=== PATIENT | female | born 1940 | race Caucasian/White ===

== ENCOUNTER 2023-04-17 08:36 | Emergency (ER) | payer OTHER, SELFPAY ==
[2023-04-17 08:43] VITALS: BP 156/88
[2023-04-17 08:52] VITALS: BP 154/80
[2023-04-17 09:00] VITALS: BP 118/102
--- NOTE | 2023-04-17 09:10 | ED.GENMED ---
History of Present Illness
General
Chief Complaint: Abdominal Pain
Source: patient
Exam Limitations: none
Time Seen by Provider: 04/17/23 08:56
Travel History
Have you had any contact with someone who has COVID-19?: No
Do you have any symptoms of coronavirus? Fever > 100 degrees, chills, cough, shortness of breath, sore throat, loss of taste or smell, muscle aches, or headache?: No
History of Present Illness
History of Present Illness:
See MDM
Past History
Past History
ED Past Medical History: HTN, Hypercholesterolemia, Hypothyroidism and Other (Diverticular disease, anxiety, chronic back pain, or near syncope syndrome with a negative workup, spinal stenosis, fractured lumbar spine); Negative Cancer or NIDDM
ED Past Surgical History: Other (Bilateral bunionectomy)
Social History
Tobacco: Former smoker
Alcohol: None
Drug: None
Personal:
Living: with family
Employment: Retired
Family History
Family History: Early CAD and Other
Phy Exam
Physical Exam
Physical Exam:
See MDM
Course
Orders/Labs/Results
Orders:
Orders
04/17/23 09:10
0.9% Sodium Chloride 1000 ml [Nss] 1,000 ml IV BOLUS
Ketorolac [Toradol] 15 mg IV NOW STA
04/17/23 09:12
CT Abd/pelvis W Iv Cont Urgent
Comment:
Reason For Exam: LLQ pain
04/17/23 09:18
Complete Blood Count/With Diff Urgent
Comprehensive Metabolic Panel Urgent
Urinalysis Reflex To Culture Urgent
Date Specimen was Collected: 04/17/23
Time Specimen was Collected: 09:13
04/17/23 13:53
Tramadol HCl [Ultram] 25 mg PO NOW STA
Abnormal Lab Results
02/01/24
09:18
Abs Immat Gran (auto) 0.1 H 10^3/uL
(0-0.05)
Immature Gran % 1.3 H %
(0-0.5)
Sodium 129 L mmol/L
(135-145)
Chloride 97 L mmol/L
(98-107)
Glucose 106 H mg/dl
(70-99)
04/17/23 09:18
04/17/23 09:18
Vital Signs
Initial and Last Documented VS:
Initial Vital Signs
Temp Pulse Resp BP Pulse Ox
97.2 F 83 16 156/88 100
04/17/23 08:43 04/17/23 08:43 04/17/23 08:43 04/17/23 08:43 04/17/23 08:43
Last Documented Vital Signs
Temp Pulse Resp BP Pulse Ox
97.2 F 83 16 156/72 95
04/17/23 08:43 04/17/23 08:43 04/17/23 08:43 04/17/23 10:00 04/17/23 10:45
MDM/Problems Addressed
Differential Diagnosis Includes:
HPI and MDM Narrative:
82-year-old female presenting with left lower quadrant pain. She has a history of diverticulitis. She recently finished Macrobid for UTI. Her doctor started her on Levaquin and Flagyl yesterday for a presumed diverticulitis. The persistent pain,
she came to emergency department. She denies fevers or diarrhea
Given her age and symptoms, will obtain CT
Physical exam
General: Well appearing and non-toxic
HEENT: protecting airway
Neck: appears supple
CV: No evidence of cyanosis
Resp: No accessory muscle use
Abd: Non-distended. Mild left lower quadrant tenderness. No rebound
Extremities: No deformities
Neuro: alert
Psych: Normal affect
Skin: Intact
Problems Addressed including Acute and Chronic Conditions affecting care:
1. Abdominal pain
Acuity: acute
Prognosis: stable
Details: Will obtain CT given her history of diverticulitis
Updates
CT negative for acute pathology. Given the pain, discussed likely early diverticulitis. She already started Levaquin yesterday but has not started the Flagyl. Discussed admission versus discharge and patient feels comfortable going home.
Discussed taking her antibiotics and discussed return precautions
Differential Diagnosis (but not limited to): Pyelonephritis, UTI, diverticulitis
Testing considered: Lactic acid
Drug therapy (if applicable): OTC meds, please see d/c instruction regarding Rx drugs
Amount and/or Complexity of Data Reviewed
Clinical info obtained from: Patient
External data reviewed: N/A
Labs I independently reviewed (but not limited to): white blood Cell count normal
Radiology: The CT scan was personally and independently reviewed. In addition, official CT report reviewed.
Pulse Ox: not hypoxic
EKG independently reviewed: N/A
Data Analytics Developer: N/A
Critical Care: N/A
Risk of Complication:
Social Determinants of health: Good social support
Discussed with other providers: N/A
Escalation of Care includes Admit/Obs: After being observed in the Emergency Department, pt stable for discharge.
Occasional wrong word or 'sound a like' substitutions may have occurred due to the inherent limitations of voice recognition software. Read the chart carefully and recognize, using context, where substitutions have occurred.
*Critical Care Note
Total Time (30-74mins, 75-104mins- exclusive of procedures): Not Applicable
ED Attending Note
-
Portions of this chart may have been created with voice recognition software.� Occasional wrong word or��sound alike� substitutions may have occurred due to the inherent limitations of voice recognition software.
Discharge Plan
Departure
Patient Disposition: Home (Routine Discharge)
Date of Disposition: 04/17/23
Time of Disposition: 13:59
Patient with high blood pressure during this ER visit?: Yes
Discharge Problem:
Diverticulitis large intestine
Instructions: Diverticulitis (DC)
Prescriptions:
New
tramadol 25 mg tablet
25 mg PO Q6H PRN (Reason: Pain) Qty: 14 0RF
No Action
aspirin 81 MG tablet,delayed release (DR/EC)
81 mg PO DAILY
lisinopril 20 MG tablet
20 mg PO HS
levothyroxine 75 MCG tablet
75 mcg PO DAILY AT 0700
lorazepam 0.5 MG tablet
0.5 mg PO DAILYPRN PRN (Reason: anxiety)
ascorbic acid (vitamin C) [Vitamin C] 500 MG tablet
1,000 mg PO DAILY@1200
zolpidem 5 MG tablet
5 mg PO HSPRN PRN (Reason: sleep)
multivitamin with folic acid [Tab-A-Mary] 1 TABLET tablet
1 tab PO DAILY@1200
Ostrophin Pmg
1 tab PO BID
lidocaine 1 PATCH adhesive patch,medicated
2 patch topical DAILY
rosuvastatin 5 MG tablet
5 mg PO .Q48H@2200
vit C,N-Cm-gkmit-lutein-zeaxan [PreserVision AREDS-2] 1 EACH capsule
1 ea PO BID
L.acidoph, paracasei,B. lactis 1 EACH capsule
1 ea PO DAILY@1200
calcium carb-mag ox-zinc sulf 1 EACH tablet
1 ea PO DAILY@1200
Vitamin B Complex With Biotin
1 tab PO DAILY@1200
docusate sodium 100 MG capsule
100 mg PO BID Qty: 60 0RF
acetaminophen 325 MG tablet
650 mg PO Q4HPRN PRN (Reason: mild pain/HILLS/temp> 100.4F) 0RF
prednisone 10 MG tablet
10 mg PO DAILY Qty: 30 0RF
polyethylene glycol 3350 17 GRAMS powder in packet
17 grams PO DAILY Qty: 30 0RF
codeine-guaifenesin [Guaiatussin AC] 10 ML liquid
5 ml PO Q6HPRN PRN (Reason: cough) Qty: 10 0RF
Referrals:
Elizabeth Acosta MD [Family Provider] -
Activity Restrictions/Additional Instructions:
Please continue your antibiotics as prescribed.
Please return for any worsening symptoms.
You may return at any time if you have further concerns.
Please follow up with your doctor at the first available appointment, preferably this week.
Thank you for choosing [facility].
Interventions
Interventions:
*Risk Screen - Suicide Last Done: 04/17/23 09:15
*General Assessment Last Done: 04/17/23 08:43
*Neglect/Abuse Screening Last Done: 04/17/23 09:15
ED- Fall Risk Assessment Last Done: 04/17/23 09:15
*ED COVID-19 Vaccine History Last Done: 04/17/23 08:43
KW-Lsvxwb-Tftbbxvfly Assessment Last Done: 04/17/23 09:15
[2023-04-17 09:15] VITALS: BMI 30.8
[2023-04-17] MEDS: TORADOL 15 MG IV (09:24)
[2023-04-17] MEDS: NSS 1000 IV (09:24)
[2023-04-17 09:28] VITALS: BP 134/77
[2023-04-17 09:45] LABS: Urine Albumin Negative (Neg - Trace); Urine Bilirubin Negative (Negative); Urine Character Clear (Clear); Urine Color Yellow; Urine Glucose Negative (Negative); Urine Ketone Negative (Negative); Urine Leukocyte Negative (Negative); Urine Nitrite Negative (Negative); Urine Occult Blood Negative (Negative); Urine Urobilinogen Negative (Neg - 1+)
[2023-04-17 09:50] LABS: % Basophils 0.7 % (0-2); % Eosinophils 3.3 % (0-6); % Immature Granulocytes 1.3 % (0-0.5); % Monocytes 6.3 % (1.7-9.3); % Neutrophils 60.4 % (42.2-75.2); Absolute Eosinophils 0.2 10^3/uL (0-0.7); Absolute Immature Granulocytes 0.1 10^3/uL (0-0.05); Absolute Lymphocytes 1.7 10^3/uL (1.2-3.4); Absolute Monocytes 0.4 10^3/uL (0.1-0.6); Absolute Neutrophils 3.6 10^3/uL (1.4-6.5); Hematocrit 38.7 % (37.0-47.0); Mean Corp Hgb Conc. 33.6 g/dL (33.0-37.0); Mean Corpuscular Volume 92.1 fL (81.0-99.0); Mean Platelet Volume 9.3 fL (7.4-10.4); Nucleated Red Blood Cells % 0 %; Platelet Count 234 10^3/uL (130-400); Red Cell Dist. Width 14.3 % (11.5-14.5)
[2023-04-17 10:00] VITALS: BP 156/72
[2023-04-17 10:01] LABS: ALT (SGPT) 25 U/L (0-35); AST (SGOT) 32 U/L (14-36); Albumin 4.4 g/dl (3.5-5.0); Alkaline Phosphatase 72 U/L (38-126); Blood Urea Nitrogen 17 mg/dl (7-17); Calcium 9.9 mg/dl (8.4-10.2); Carbon Dioxide 26 mmol/L (22-30); Chloride 97 mmol/L (98-107); Estimated Creatinine Clearance 57 ml/min; Glucose 106 mg/dl (70-99); Potassium 4.3 mmol/L (3.5-5.1); Sodium 129 mmol/L (135-145); Total Bilirubin 0.7 mg/dl (0.2-1.3); Total Protein 7.4 g/dl (6.3-8.2); eGFR > 60.00
[2023-04-17] MEDS: ULTRAM 25 MG PO (14:09)
== END 2023-04-17 14:16 | disposition home or self-care (01) ==
LOC: EMR 08:36
PROVIDERS: EMERGENCY PHYSICIAN Student in an Organized Health Care Education/Training Program; FAMILY PHYSICIAN Internal Medicine
DX: K57.32 Diverticulitis of large intestine without perforation or abscess without bleeding (principal); I10 Essential (primary) hypertension; E78.00 Pure hypercholesterolemia, unspecified; M54.9 Dorsalgia, unspecified; E03.9 Hypothyroidism, unspecified; F41.9 Anxiety disorder, unspecified; M48.00 Spinal stenosis, site unspecified; G89.29 Other chronic pain; Z79.82 Long term (current) use of aspirin; Z87.891 Personal history of nicotine dependence; Z87.440 Personal history of urinary (tract) infections; Z88.6 Allergy status to analgesic agent; Z88.1 Allergy status to other antibiotic agents; Z88.5 Allergy status to narcotic agent; Z88.0 Allergy status to penicillin
CPT/HCPCS: 99285; 96361; 96374; 74177; 80053; 81003; 85025; Q9967

== ENCOUNTER 2023-05-26 11:44 | Inpatient (IN) | payer OTHER, SELFPAY ==
[2023-05-26] VITALS (11 sets, daily range): BP systolic 113–158; BP diastolic 46–67; PULSE 61–75; BMI 28.3; BMI 28.7
[2023-05-26 09:05] LABS: Glucose - Point of Care 162 mg/dl (70-99)
--- NOTE | 2023-05-26 09:16 | ED.GENMED ---
History of Present Illness
General
Chief Complaint: Fainting/Passed Out
Source: patient
Time Seen by Provider: 05/26/23 09:14
Travel History
Have you had any contact with someone who has COVID-19?: No
Do you have any symptoms of coronavirus? Fever > 100 degrees, chills, cough, shortness of breath, sore throat, loss of taste or smell, muscle aches, or headache?: No
History of Present Illness
History of Present Illness:
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 Patient states that over the past couple days she has been experiencing some nausea, generalized weakness particular when she gets up in
the morning. She did begin taking a new blood pressure medication, hydrochlorothiazide about a week ago. She also started on an anxiety medicine at the same time. Patient has had syncopal episodes several times in the past. These have occurred
in the context of nausea and pain. 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 She denies any chest pain.
Past History
Past History
ED Past Medical History: HTN, Hypercholesterolemia, Hypothyroidism and Other (Diverticular disease, anxiety, chronic back pain, or near syncope syndrome with a negative workup, spinal stenosis, fractured lumbar spine); Negative Cancer or NIDDM
ED Past Surgical History: Other (Bilateral bunionectomy)
Social History
Tobacco: Former smoker
Alcohol: None
Drug: None
Personal:
Living: with family
Employment: Retired
Family History
Family History: Early CAD and Other
Phy Exam
Physical Exam
Physical Exam:
General: Awake, Alert, Oriented X3. No acute distress.
Vitals: unremarkable
Head: Atraumatic
Eyes: Pupils equal, EOMI
Throat: Airway intact, no exudates
Neck: Trachea midline
Lungs: Clear and equal b/l
Heart: Regular rate, no murmurs
Abd: Soft, Nontender, No pulsatile mass
Neuro: Nonfocal
Skin: Warm, dry, no rash
Extremities: pulses equal b/l, no edema
Course
Orders/Labs/Results
Orders:
Orders
05/26/23
Electrocardiogram (*1) Stat
Reason for Study: Chest Pain
05/26/23 09:14
0.9% Sodium Chloride 500 ml [Nss] 500 ml IV BOLUS
Ondansetron Injectable [Zofran] 4 mg IV NOW STA
05/26/23 09:15
Cardiac Monitoring- Treatment ONCE
05/26/23 09:18
Basic Metabolic Panel Urgent
COVID-19 Antigen Urgent
Source: Nasal Swab
Complete Blood Count/With Diff Urgent
Magnesium Urgent
Phos [Phosphorus] Urgent
Serum Osmolality Urgent
Comment: ADD ON
Influenza A+B Rapid Molecular Urgent
MIMI Source: Nasal Swab
Specimen Description:
05/26/23 11:17
Admit/Transfer Patient As Directed
Co-Sign Provider:
Level of Care: Inpatient admission
Assign to:: Telemetry
Physician / Group: alice ryan
Diagnosis: Symptomatic Hyponatremia
Reason for Telemetry: Arrhythmia
Date to Stop Telemetry: 05/29/23
Time to Stop Telemetry: 11:00
Reason for Hospitalization: Symptomatic Hyponatremia
Expected length of stay greater than two midnights?: Yes
ELOS- Estimated Length of Stay in days: 3
I certify the patient meets the requirements for IP care: Yes
05/26/23 11:21
Code Status As Directed
Resuscitation Status: Full Code
05/26/23 11:23
Osmolality, Random Urine Urgent
Date Specimen was Collected: 05/26/23
Time Specimen was Collected: 11:20
Urinalysis Urgent
Date Specimen was Collected: 05/26/23
Time Specimen was Collected: 11:20
Urine Sodium Urgent
Date Specimen was Collected: 05/26/23
Time Specimen was Collected: 11:20
05/26/23 11:25
NEPHROLOGY CONSULT Routine
Consulting Provider: Risa Liz
Was physician already notified: Yes
05/29/23 11:00
DC Protocol for Telemetry ONCE
Abnormal Lab Results
05/26/23 05/26/23 05/26/23
09: 09:18 11:23
RBC 3.71 L 10^6/uL
(4.20-5.40)
Hgb 11.8 L g/dL
(12.0-16.0)
Hct 33.1 L %
(37.0-47.0)
MCH 31.8 H pg
(27.0-31.0)
Abs Immat Gran (auto) 0.2 H 10^3/uL
(0-0.05)
Absolute Monos (auto) 0.8 H 10^3/uL
(0.1-0.6)
Immature Gran % 2.3 H %
(0-0.5)
Sodium 124 L mmol/L
(135-145)
Chloride 95 L mmol/L
(98-107)
BUN 25 H mg/dl
(7-17)
Glucose 131 H mg/dl
(70-99)
Serum Osmolality 268 L mOsm/kg
(275-300)
Urine Sodium 99 H mmol/L
(30-90)
POC Glucose 162 H mg/dl
(70-99)
05/26/23 09:18
05/26/23 09:18
Vital Signs
Initial and Last Documented VS:
Initial Vital Signs
Pulse Resp
62 13
05/26/23 09:06 03/11/24 09:06
Last Documented Vital Signs
Pulse Resp BP Pulse Ox
67 14 113/46 93
05/26/23 14:15 05/26/23 14:15 05/26/23 14:00 05/26/23 14:15
MDM/Problems Addressed
Differential Diagnosis Includes:
Cardiac dysrhythmia, dehydration, vasovagal event
MDM/Problems Addressed:
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 She has had syncopal episodes in the past. Patient was having nausea preceding the event and she did feel as if she was going to pass out. Therefore I do not believe this is a cardiac
dysrhythmia. It sounds primarily vasovagal syncope. However it is unclear why she was so nauseous. She is been feeling unwell for the past 3 to 4 days. COVID and flu test are negative. She did recently start taking hydrochlorothiazide as well
as a new medication for depression. Labs show a sodium of 124. Her sodium was 129 in April. The symptoms she is describing (headache, nausea, generalized weakness) may very well be related to the hyponatremia. Hospitalist patient for
monitoring of her sodium as well as cardiac monitoring. Likely discontinue hydrochlorothiazide following fluid restriction will likely improve her hyponatremia
Chronic conditions affecting care: HTN
*Pulse Oximetry
Patient hypoxic: no
*EKG
Interpreted by ED Provider?: Yes
Heart Rate: 56
Rate: bradycardiac
Rhythm: sinus
Pyatt: normal axis
Interval: first degree heart block
QRS Pattern: normal QRS
Ischemia: no ischemia
*Vessel Specialist Interpretation
Rate: bradycardiac
Heart Rate: 56
Rhythm: sinus
*Critical Care Note
Total Time (30-74mins, 75-104mins- exclusive of procedures): Not Applicable
Patient Management
Social determinants of health affecting care: Strong social support
Discussion with other providers: Hospitalist
ED Attending Note
-
Portions of this chart may have been created with voice recognition software.� Occasional wrong word or��sound alike� substitutions may have occurred due to the inherent limitations of voice recognition software.
Discharge Plan
Departure
Patient Disposition: Admit
Date of Disposition: 05/26/23
Time of Disposition: 10:15
Admit to: Med/Surg
Presentation/result/management discussed w/ accepting MD/DO: Hospitalist
Condition: Fair
Discharge Problem:
Syncope, Acute hyponatremia
Interventions
Interventions:
*Risk Screen - Suicide Last Done: 05/26/23 09:03
*General Assessment Last Done: 05/26/23 09:03
*Neglect/Abuse Screening Last Done: 05/26/23 09:03
ED- Fall Risk Assessment Last Done: 05/26/23 09:14
*ED COVID-19 Vaccine History Last Done: 05/26/23 09:14
ED- Cardiac Assessment Last Done: 05/26/23 09:30
ED- Neurological Assessment Last Done: 05/26/23 09:30
[2023-05-26] MEDS: NSS 500 IV (09:22)
[2023-05-26] MEDS: ZOFRAN 4 MG IV (09:27)
[2023-05-26 09:33] LABS: % Basophils 0.4 % (0-2); % Eosinophils 1.1 % (0-6); % Immature Granulocytes 2.3 % (0-0.5); % Lymphocytes 26.3 % (20.5-51.1); % Monocytes 8.2 % (1.7-9.3); % Neutrophils 61.7 % (42.2-75.2); Absolute Eosinophils 0.1 10^3/uL (0-0.7); Absolute Immature Granulocytes 0.2 10^3/uL (0-0.05); Absolute Lymphocytes 2.6 10^3/uL (1.2-3.4); Absolute Monocytes 0.8 10^3/uL (0.1-0.6); Absolute Neutrophils 6.2 10^3/uL (1.4-6.5); Hematocrit 33.1 % (37.0-47.0); Hemoglobin 11.8 g/dL (12.0-16.0); Mean Corp Hgb Conc. 35.6 g/dL (33.0-37.0); Mean Corpuscular Hgb 31.8 pg (27.0-31.0); Mean Corpuscular Volume 89.2 fL (81.0-99.0); Mean Platelet Volume 9.4 fL (7.4-10.4); Nucleated Red Blood Cells % 0 %; Platelet Count 284 10^3/uL (130-400); Red Blood Cell Count 3.71 10^6/uL (4.20-5.40)
[2023-05-26 09:46] LABS: Blood Urea Nitrogen 25 mg/dl (7-17); Carbon Dioxide 22 mmol/L (22-30); Chloride 95 mmol/L (98-107); Estimated Creatinine Clearance 57 ml/min; Glucose 131 mg/dl (70-99); Magnesium 1.7 mg/dl (1.6-2.3); Phosphorus 3.6 mg/dl (2.5-4.5); Potassium 4.3 mmol/L (3.5-5.1); Sodium 124 mmol/L (135-145); eGFR > 60.00
[2023-05-26 10:25] LABS: COVID-19 Antigen Negative (Negative)
[2023-05-26 11:31] LABS: Urine Albumin Negative (Neg - Trace); Urine Bilirubin Negative (Negative); Urine Character Clear (Clear); Urine Color Yellow; Urine Glucose Negative (Negative); Urine Ketone Negative (Negative); Urine Leukocyte Negative (Negative); Urine Nitrite Negative (Negative); Urine Occult Blood Negative (Negative); Urine Specific Gravity 1.015 (<1.030); Urine Urobilinogen Negative (Neg - 1+); Urine pH 6.5 (5.0-9.0)
--- NOTE | 2023-05-26 11:57 | HPS.HSE ---
Family Physician
-
Family Physician: Elizabeth Acosta
Chief Complaint
-
Dizziness, nausea
History of Present Illness
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 Per patient she has been feeling nauseous with
generalized weakness started this morning. He went to her document imaging specialist office for her blood pressure. They noted her having a near syncopal episode so they referred her to the ED for evaluation. Per patient she has been recently started on
hydrochlorothiazide and Lexapro a week ago outpatient. Patient then had syncopal episodes in the past. Denies any chest pain, shortness of breath.
Medical History
Past Medical History
Past Medical History: Reports HTN, Hypercholesterolemia, Hypothyroidism and Other (Chronic back pain)
Past Surgical History: Reports Other (Bunionectomy)
Social History
Tobacco: Former Smoker
Alcohol: None
Drug: None
Family History
Family History: Not pertinent
Allergies / Home Medications
Allergies reflects when Allergies were last updated in [facility].
Home Medications with original date entered in [facility]
Allergy/Medication List:
Allergies
Allergy/AdvReac Type Severity Reaction Status Date / Time
Penicillins Allergy Mild Hives Verified 05/26/23 09:07
clindamycin Allergy Tongue Verified 05/26/23 09:07
Swelling
acetaminophen AdvReac upset Verified 05/26/23 09:07
[From Tylenol-Codeine #3] stomach
codeine AdvReac upset Verified 05/26/23 09:07
[From Tylenol-Codeine #3] stomach
Home Medications
levothyroxine 75 mcg tablet 75 mcg PO DAILY AT 0700 Thyroid 03/03/18
lorazepam 0.5 mg tablet 0.5 mg PO DAILY 03/03/18
zolpidem 5 mg tablet 5 mg PO HSPRN PRN sleep 03/03/18
lidocaine 5 % topical patch 1 patch topical DAILYPRN PRN thoracic back 04/12/18
rosuvastatin 5 mg tablet 5 mg PO QPM High cholesterol 03/10/20
vit C 250 mg-vit E 90 mg-zinc 40 mg-copper 1 [id number]-ypedoz capsule (PreserVision AREDS-2) 1 ea PO BID Supplement 03/10/20
docusate sodium 100 mg capsule 100 mg PO BID #60 caps 03/19/20
Lactobac no.2-Bifidobac no.1-S. thermo 112.5 billion cell capsule (Visbiome) 1 cap PO DAILY 05/26/23
ascorbic acid (vitamin C) 500 mg tablet (Vitamin C) 500 mg PO DAILY 05/26/23
cholecalciferol (vitamin D3) 50 mcg (2,000 unit) tablet (Vitamin D3) 50 mcg PO DAILY 05/26/23
escitalopram oxalate 10 mg tablet (Lexapro) 10 mg PO QPM 05/26/23
hydrochlorothiazide 25 mg tablet 25 mg PO DAILY 05/26/23
lisinopril 30 mg tablet 30 mg PO DAILY 05/26/23
psyllium 1 packet PO DAILY 05/26/23
Review of Systems
-
History Source: Patient
A 12 point ROS was completed and negative except as noted: Yes
Abdomen/GI: Reports Nausea
Physical Exam
Vital Signs
Vital Signs
Pulse Resp BP Pulse Ox
53 13 113/53 94
05/26/23 10:00 05/26/23 10:00 05/26/23 10:00 05/26/23 10:00
Physical Exam
General: Well Nourished and No Apparent Distress
HEENT: Anicteric and Moist mucous membranes
Respiratory: Clear; No Wheezes
Cardiac: S1/S2 and Regular Rhythm
Breast: Deferred by me
GI: Soft, Non Tender, Non Distended and Normal Bowel Sounds
Rectal: Deferred by Provider
Genito-urinary: No Naylor
Musculoskeletal: No Edema
Neuro: Awake, Alert and Oriented
Psych: Calm and Intact Judgment/Insight
Laboratory Results
-
05/26/23 09:18
05/26/23 09:18
Data Reviewed
-
Lab Data: Labs Reviewed by me, Discussed with Patient and Discussed with Family
Impression/Plan
-
Symptomatic hyponatremia
Likely could be associated with HCTZ, Lexapro
Check urine and serum studies
Normal saline in the ED
Nephrology consult
Repeat sodium later today
History of hypertension
Continue lisinopril
Hold HCTZ
Hydralazine as needed if needed
History of hypothyroidism
Continue with Synthroid
Hyperlipidemia
Insomnia
On Ambien as needed
DVT prophylaxis
Lovenox
Full code
[2023-05-26 12:17] LABS: Urine Sodium 99 mmol/L (30-90)
[2023-05-26 12:33] LABS: Osmolality Urine 548 mOsm/kg (300-900)
--- NOTE | 2023-05-26 13:23 | EDRN ---
Thermodynamic Physicist Dr. Liz in room w/ pt at this time.
--- NOTE | 2023-05-26 14:04 | EDRN ---
Pt's daughter brought her mother a chicken salad w/ cucumbers from the cafe in cardiac area.
[2023-05-26 14:41] LABS: Osmolality Serum 268 mOsm/kg (275-300)
--- NOTE | 2023-05-26 15:12 | EDRN ---
No Delay Nurse Report tubed to 4th floor for TEL bed 410.1 at this time w/ call placed to floor and message left for RN who will care for pt.
--- NOTE | 2023-05-26 15:41 | W.CON.NEPH ---
Consultation
-
Date/Time Consultation Requested: 05/26/23 1125
Date/Time Consultation Performed: 05/26/23 1300
Requesting Provider: Major Philip
Performing Provider: Risa Mcmahan
Reason for Consultation: hyponatremia
Medical History
-
History of Present Illness:
82-year-old female with past medical history of hypertension on ACEI, anxiety on ativan, HLD on statin who noticed to have high BPs at dentist visit and subsequently saw PCP and started on HCTZ last week, to decrease use of Benzo she was also
started on Lexapro. since these 2new meds she started to feel nausea, decreased food intake. She was at cards office today and reportedly had syncope and brought to the hospital. Noted that she has hyponatremia of 124, has chr hyponatremia in low
130s.. She reports feeling dizzy at home for few days. For chr back pain had steroid injection prior to last week too.Does report of taking ibuprofen daily for sciatica. She reports having syncope in the past too. Offers no CP or sob, cough or
fevers. NO LE edema. She was not eating well and felt dizzy though her BPs were high at home.
She received 1lit of NS in ER.
Past Medical History
HTN, Hypercholesterolemia, Hypothyroidism and Other (Chronic back pain)
Past Surgical History: Bunionectomy
Social History
Tobacco: Former Smoker
Alcohol: None
Personal:
Living: Alone
Family History
Family History: Not Pertinent
Allergies / Home Medications
Allergy/AdvReac Type Severity Reaction Status Date / Time
Penicillins Allergy Mild Hives Verified 05/26/23 09:07
clindamycin Allergy Tongue Verified 05/26/23 09:07
Swelling
acetaminophen AdvReac upset Verified 05/26/23 09:07
[From Tylenol-Codeine #3] stomach
codeine AdvReac upset Verified 05/26/23 09:07
[From Tylenol-Codeine #3] stomach
Medication Instructions Recorded Confirmed Type
levothyroxine 75 mcg tablet 75 mcg PO DAILY AT 0700 Thyroid 03/03/18 05/26/23 History
lorazepam 0.5 mg tablet 0.5 mg PO DAILY 03/03/18 05/26/23 History
zolpidem 5 mg tablet 5 mg PO HSPRN PRN sleep 03/03/18 05/26/23 History
lidocaine 5 % topical patch 1 patch topical DAILYPRN PRN 04/12/18 05/26/23 History
thoracic back
rosuvastatin 5 mg tablet 5 mg PO QPM High cholesterol 03/10/20 05/26/23 History
vit C 250 mg-vit E 90 mg-zinc 40 1 ea PO BID Supplement 03/10/20 05/26/23 History
mg-copper 1 [id number]
capsule (PreserVision AREDS-2)
docusate sodium 100 mg capsule 100 mg PO BID #60 caps 03/19/20 05/26/23 Rx
Lactobac no.2-Bifidobac no.1-S. 1 cap PO DAILY 05/26/23 05/26/23 History
thermo 112.5 billion cell capsule
(Visbiome)
ascorbic acid (vitamin C) 500 mg 500 mg PO DAILY 05/26/23 05/26/23 History
tablet (Vitamin C)
cholecalciferol (vitamin D3) 50 50 mcg PO DAILY 05/26/23 05/26/23 History
mcg (2,000 unit) tablet (Vitamin
D3)
escitalopram oxalate 10 mg tablet 10 mg PO QPM 05/26/23 05/26/23 History
(Lexapro)
hydrochlorothiazide 25 mg tablet 25 mg PO DAILY 05/26/23 05/26/23 History
lisinopril 30 mg tablet 30 mg PO DAILY 05/26/23 05/26/23 History
psyllium 1 packet PO DAILY 05/26/23 05/26/23 History
Review of Systems
-
All complete 12 point ROS have been inquired and found negative other than stated in HPI
Physical Exam
Vital Signs
Vital Signs
Pulse Resp BP Pulse Ox
67 14 113/46 93
05/26/23 14:15 05/26/23 14:15 05/26/23 14:00 05/26/23 14:15
Lab Results
WBC 10.0 10^3/uL (4.8-10.8) 05/26/23 09:18
RBC 3.71 10^6/uL (4.20-5.40) L 05/26/23 09:18
Hgb 11.8 g/dL (12.0-16.0) L 05/26/23 09:18
Hct 33.1 % (37.0-47.0) L 05/26/23 09:18
Plt Count 284 10^3/uL (130-400) 05/26/23 09:18
Potassium 4.3 mmol/L (3.5-5.1) 05/26/23 09:18
Chloride 95 mmol/L (98-107) L 05/26/23 09:18
Carbon Dioxide 22 mmol/L (22-30) 05/26/23 09:18
BUN 25 mg/dl (7-17) H 05/26/23 09:18
Creatinine 0.7 mg/dL (0.6-1.0) 05/26/23 09:18
eGFR > 60.00 05/26/23 09:18
Glucose 131 mg/dl (70-99) H 05/26/23 09:18
Calcium 10.0 mg/dl (8.4-10.2) 05/26/23 09:18
Phosphorus 3.6 mg/dl (2.5-4.5) 05/26/23 09:18
soidum 124
Physical Exam
General: Awake, Alert and Oriented
HEENT: EOMI and Anicteric
Respiratory: Clear, Normal Excursion and Nonlabored Respirations
Cardiac: S1/S2 and No Edema
Breast: Deferred by me
Abdomen: Soft, Nontender and Nondistended
Musculoskeletal: No Cyanosis and No Edema
Skin: No Rash
Neuro: Nonfocal/Grossly Intact
Psych: Mood/afflect pleasant, Insight/judgement good and Appropriate
Assessment/Plan
-
IMP:
Symptomatic hyponatremia
History of hypertension
History of hypothyroidism
Hyperlipidemia
Insomnia
Plan:
A/w syncope at cards office
hyponatremia-suspect mild hypovolemia present in addition new meds HCTZ and SSRI+NSAIDs, pain , U osmo 548
will hold both meds
recheck labs since se got 1lit NS in ER
check TSH in am
BP are sable , resume ACEI
serial labs per primary
maintain FR 48 ounce/day
ok for gentle IVF as long as na improves
avoid NSAIDs
Data Reviewed
-
Labs: Labs Reviewed by me and Discussed with Patient
[2023-05-26 15:51] LABS: Sodium 126 mmol/L (135-145)
[2023-05-26] MEDS: LIDOCAINE 4% PATCH 1 PATCH TOPICAL (16:21)
[2023-05-26] MEDS: NSS 1000 IV (16:23)
[2023-05-26] MEDS: FLUSH (NSS) 1 FLUSH IV (16:23)
[2023-05-26] MEDS: CRESTOR 5 MG PO (18:32)
[2023-05-26] MEDS: LOVENOX 40 MG SC (18:32)
--- NOTE | 2023-05-26 20:12 | VATNOTE ---
pt informed this VAT RN that IV site was placed at her cardiologists office today, dr. cagle's. will not remove at this time.
[2023-05-26] MEDS: COLACE 100 MG PO (20:25)
[2023-05-26] MEDS: OCUVITE SOFTGEL 1 CAP PO (20:25)
[2023-05-26 21:31] LABS: Sodium 125 mmol/L (135-145)
[2023-05-26] MEDS: TYLENOL 650 MG PO (21:48)
[2023-05-26] MEDS: SODIUM CHLORIDE 3% 250 IV (21:51)
[2023-05-26] MEDS: AMBIEN 5 MG PO (23:04)
[2023-05-27] VITALS (7 sets, daily range): BP systolic 95–155; BP diastolic 53–73; PULSE 59–70; O2SAT 95; BMI 29.0
[2023-05-27 03:21] LABS: % Basophils 0.5 % (0-2); % Eosinophils 1.7 % (0-6); % Immature Granulocytes 1.3 % (0-0.5); % Lymphocytes 32.4 % (20.5-51.1); % Monocytes 8.5 % (1.7-9.3); % Neutrophils 55.6 % (42.2-75.2); Absolute Eosinophils 0.1 10^3/uL (0-0.7); Absolute Immature Granulocytes 0.1 10^3/uL (0-0.05); Absolute Lymphocytes 2.7 10^3/uL (1.2-3.4); Absolute Monocytes 0.7 10^3/uL (0.1-0.6); Absolute Neutrophils 4.6 10^3/uL (1.4-6.5); Hematocrit 33.2 % (37.0-47.0); Hemoglobin 11.2 g/dL (12.0-16.0); Mean Corp Hgb Conc. 33.7 g/dL (33.0-37.0); Mean Corpuscular Hgb 31.4 pg (27.0-31.0); Mean Platelet Volume 9.4 fL (7.4-10.4); Nucleated Red Blood Cells % 0 %; Platelet Count 245 10^3/uL (130-400); Red Blood Cell Count 3.57 10^6/uL (4.20-5.40); Red Cell Dist. Width 13.9 % (11.5-14.5); White Blood Cell Count 8.2 10^3/uL (4.8-10.8)
[2023-05-27 03:36] LABS: Blood Urea Nitrogen 24 mg/dl (7-17); Calcium 8.9 mg/dl (8.4-10.2); Carbon Dioxide 28 mmol/L (22-30); Chloride 97 mmol/L (98-107); Estimated Creatinine Clearance 45 ml/min; Glucose 96 mg/dl (70-99); Potassium 4.1 mmol/L (3.5-5.1); Sodium 127 mmol/L (135-145); eGFR > 60.00
[2023-05-27 04:07] LABS: TSH Reflex To Free T4 1.37 uIU/ml (0.47-4.68)
[2023-05-27] MEDS: SYNTHROID 75 MCG PO (05:32)
[2023-05-27] MEDS: TYLENOL 650 MG PO ×3 (05:37→23:01)
[2023-05-27] MEDS: OCUVITE SOFTGEL 1 CAP PO ×2 (09:16→20:37)
[2023-05-27] MEDS: COLACE 100 MG PO ×2 (09:16→20:37)
[2023-05-27] MEDS: ZESTRIL 30 MG PO ×2 (09:17→09:23)
[2023-05-27] MEDS: VISBIOME 1 CAP PO (09:21)
[2023-05-27] MEDS: ATIVAN 0.5 MG PO (09:21)
[2023-05-27] MEDS: VITAMIN C 500 MG PO (09:23)
[2023-05-27] MEDS: VITAMIN D3 (cholecalciferol) 50 MCG PO (09:24)
[2023-05-27] MEDS: METAMUCIL, KONSYL 1 PACKET PO (09:25)
[2023-05-27] MEDS: LIDOCAINE 4% PATCH 1 PATCH TOPICAL (09:36)
[2023-05-27 10:14] LABS: Sodium 130 mmol/L (135-145)
--- NOTE | 2023-05-27 11:39 | W.PN.HOSP.TC ---
Today's Communication/Plan
-
Monitor vital signs and see plan
Monitor on telemetry
Monitor sodium
Cardiology evaluation
Continue to hold Lexapro and HCTZ
Assessment / Plan
Assessment / Plan
General: Well Nourished and No Apparent Distress
HEENT: Anicteric and Moist mucous membranes
Respiratory: Clear; No Wheezes
Cardiac: S1/S2 and Regular Rhythm
Breast: Deferred by me
GI: Soft, Non Tender, Non Distended and Normal Bowel Sounds
Rectal: Deferred by Provider
Genito-urinary: No Naylor
Musculoskeletal: No Edema
Neuro: Awake, Alert and Oriented
Psych: Calm and Intact Judgment/Insight
Symptomatic hyponatremia
Likely could be associated with HCTZ, Lexapro
Nephrology following
monitor sodium; s/p 3% 05/25
Na now 127
Questionable Syncope prior to admission
on tele earlier this morning with sinus bradycardia heart rate as low as 38. 2.2-second pause.
Patient follows up with Dr. Paris outpatient, cardiology consulted. check echo
orthos pending
TSH wnl
History of hypertension
Continue lisinopril
Hold HCTZ
Hydralazine as needed if needed
History of hypothyroidism
Continue with Synthroid
Hyperlipidemia
Anxiety
on lorazepam
Insomnia
On Ambien as needed
DVT prophylaxis
Lovenox
Full code
I spent a total of 52 minutes with the patient or on the floor. More than 50% of this time involved counseling and coordination of care.
Anticipated Discharge: 24 - 48 hours
Subjective/Interval History
-
Date of Service: May 27, 2023
denies pain
Objective Data
-
Labs:
Laboratory Results
05/27/23 05/27/23 05/27/23
02:37 02:37 09:55
WBC 8.2
Hgb 11.2 L
Hct 33.2 L
Plt Count 245
Sodium 127 L Cancelled 130 L
Potassium 4.1
Chloride 97 L
Carbon Dioxide 28
BUN 24 H
Creatinine 0.9
Glucose 96
Calcium 8.9
Vital Signs:
Vital Signs
Temp Pulse Resp BP Pulse Ox
98.0 F 55 16 136/63 99
05/27/23 07:55 05/27/23 09:23 05/27/23 07:55 05/27/23 09:23 05/27/23 07:55
I&O
05/26/23 05/27/23 05/28/23
06:59 06:59 06:59
Intake Total 370 / 370
Balance 370 / 370
--- NOTE | 2023-05-27 12:41 | CON.CAR ---
Addendum entered and electronically signed by Grayson Weeks MD 05/27/23 13:36:
Attending addendum: Patient seen and examined. PA note reviewed and findings independently confirmed by me. Briefly 82 y/o female with a PMH notable for hypertension, anxiety/depression and chronic back pain. Her BP has been modestly elevated
with home readings typically running 130-140's. She was started on HCTz and was also started on Citalopram for her anxiety/depression. She typically follows with Dr. Paris and was scheduled to be seen in the office by Yeimi Lott NP. She was
dizzy and found to be hypotensive. She experienced syncope
GEN: AAO x 3. No acute distress. She is pleasant and conversant. Gives a good history.
HEENT: NC/AT, sclera are anicteric, hearing and nares are normal. MMM
NECK: Supple. Normal JVP
LUNGS: Clear to bases bilaterally. No wheezing or rhonchi
CV: Regular rate and rhythm. Normal S1/S2. No S3, No S4. Murmur: None
ABD : Soft, NT, ND, No HSM. Bowel sounds are present.
EXT: No CCE. Palpable posterior tibial and dorsalis pedal pulse on the right and dorsalis pedal pulse on the left
NEURO: No focal neurologic deficits
RECOMMENDATION
-Clinical history is most consistent with vasovagal episode. She is also found to be hyponatremic likely related to HCTZ. Recommend the following:
Discontinue HCTZ: I suspect a portion of her hyponatremia may be related to initiation of HCTZ
Increase lisinopril from 30 to 40 mg a week and monitor blood pressures
Would not make any dramatic changes in her antihypertensive regimen. She can follow-up as an outpatient with home blood pressure reading
Echocardiogram
Original Note:
Consultation
Consultation Request
Date/Time Consultation Performed: 05/27/23
Requesting Provider: Dr. Pan
Performing Provider: Joycelyn Ko PA-C for Dr. Weeks
Reason for Consultation: syncope, bradycardia
Medical History
-
Chief Complaint: syncope
History of Present Illness:
Patient is an 82 yo F with PMH of HTN, HLD, chronic back pain. She has had hypertension for some time and is maintained on lisinopril 30mg daily. On 05/19 she underwent epidural injection of lumbar spine by ortho. During procedure BP was high and she
was advised to follow up with PCP. She saw PCP 05/20 and was started on HCTZ. She also discussed ongoing anxiety for which she had been taking lorazepam BID, and was started on lexapro. Yesterday, 05/25, patient was seen in cardiology office and during
visit became dizzy. BP was low at 92/64 with HR 82. Given water and legs elevated. She then had syncopal episode. She vomited. Started on IVF and placed on oxygen and she awakened. BP improved and she was brought to ER. Cardiology consulted due to
bradycardia noted on tele. Not on any av keshia blocking agents as OP.
PMH:
HTN
HLD
hypothyroidism
thoracic compression fracture
chronic back pain/spinal stenosis
anxiety
Past Medical History
Past Medical History: Other (in HPI)
Social History
Tobacco: Former Smoker
Alcohol: None
Personal:
Employment: Retired
Allergies / Home Medications
Allergy/AdvReac Type Severity Reaction Status Date / Time
Penicillins Allergy Mild Hives Verified 05/26/23 09:07
clindamycin Allergy Tongue Verified 05/26/23 09:07
Swelling
acetaminophen AdvReac upset Verified 05/26/23 09:07
[From Tylenol-Codeine #3] stomach
codeine AdvReac upset Verified 05/26/23 09:07
[From Tylenol-Codeine #3] stomach
Medication Instructions Recorded Confirmed Type
levothyroxine 75 mcg tablet 75 mcg PO DAILY AT 0700 Thyroid 03/03/18 05/26/23 History
lorazepam 0.5 mg tablet 0.5 mg PO DAILY Mental 03/03/18 05/26/23 History
Health/Anxiety
zolpidem 5 mg tablet 5 mg PO HSPRN PRN sleep 03/03/18 05/26/23 History
lidocaine 5 % topical patch 1 patch topical DAILYPRN PRN 04/12/18 05/26/23 History
thoracic back
rosuvastatin 5 mg tablet 5 mg PO QPM High cholesterol 03/10/20 05/26/23 History
vit C 250 mg-vit E 90 mg-zinc 40 1 ea PO BID Supplement 03/10/20 05/26/23 History
mg-copper 1 [id number]
capsule (PreserVision AREDS-2)
docusate sodium 100 mg capsule 100 mg PO BID #60 caps 03/19/20 05/26/23 Rx
Lactobac no.2-Bifidobac no.1-S. 1 cap PO DAILY Supplement 05/26/23 05/26/23 History
thermo 112.5 billion cell capsule
(Visbiome)
ascorbic acid (vitamin C) 500 mg 500 mg PO DAILY Supplement 05/26/23 05/26/23 History
tablet (Vitamin C)
cholecalciferol (vitamin D3) 50 50 mcg PO DAILY Supplement 05/26/23 05/26/23 History
mcg (2,000 unit) tablet (Vitamin
D3)
escitalopram oxalate 10 mg tablet 10 mg PO QPM Depression 05/26/23 05/26/23 History
(Lexapro)
hydrochlorothiazide 25 mg tablet 25 mg PO DAILY Fluid 05/26/23 05/26/23 History
Retention/Swelling
lisinopril 30 mg tablet 30 mg PO DAILY Blood Pressure 05/26/23 05/26/23 History
psyllium 1 packet PO DAILY Constipation 05/26/23 05/26/23 History
Review of Systems
-
History Source: Patient and Family
All other systems: Negative unless noted
Physical Exam
Vital Signs
Temp Pulse Resp BP Pulse Ox
98.0 F 55 16 136/63 99
05/27/23 07:55 05/27/23 09:23 05/27/23 07:55 05/27/23 09:23 05/27/23 07:55
Lab Results
05/27/23 02:37
05/27/23 09:55
Physical Exam
General: No Apparent Distress and Comfortable
HEENT: Normocephalic, Anicteric and Moist Mucous Membranes
Respiratory: Clear and Non Labored Respirations
Cardiac: S1/S2 and Regular Rhythm (annabelle)
GI: Soft, Non Tender, Non Distended and Normal Bowel Sounds
Musculoskeletal: No Clubbing, No Cyanosis and No Edema
Skin: Warm and Dry
Neuro: AO x 3
Impression / Plan
-
Primary Private Advisor: Dr. Paris
Assessment:
Presentation with syncope
Sinus bradycardia
Hyponatremia
HTN
HLD
hypothyroidism
thoracic compression fracture
chronic back pain/spinal stenosis
anxiety
ECHO 09/2020: EF 60%, mild cLVH, aortic sclerosis, trivial AR
Plan:
-Patient presents after syncopal episode while in cardiology office 05/26/23. suspected vagal etiology
-noted on arrival to ER to be hyponatremic, Na 125. likely combination of new start HCTZ and lexapro, although with history of mild hyponatremia in past by records. both meds stopped at this time. Na improving
-check echo, last from 2020 as above
-tele reviewed, sinus annabelle without pauses or high grade av block. not on av keshia blocking agents as OP
-TSH WNL
-BPs overall appear elevated. consider increase lisinopril to 40mg daily. check ortho VS
-consider alternative anti-anxiety agent. on lorazepam BID as OP. defer to primary service.
-d/w patient and daughter at bedside
Data Reviewed
-
EKG: Tracing Personally Visualized and interpreted
Medical Tests (Nuc Med, Echo etc): Report Reviewed by me
Labs: Labs Reviewed by me
Old Records: Reviewed
--- NOTE | 2023-05-27 12:56 | W.PN.NEPH.PH ---
Today's Communication / Plan
-
labs in am
Assessment/Plan
-
IMP:
Symptomatic hyponatremia-acute on chronic
History of hypertension
History of hypothyroidism
Hyperlipidemia
Insomnia
Plan:
A/w syncope at cards office
hyponatremia-suspect mild hypovolemia in addition new meds HCTZ and SSRI+NSAIDs, pain , U osmo 548
will hold both HCTZ and SSRI-not resume in future
normal TSH
sodium improved to 130 s/p 3% slaine overnight
encourage solute intake and maintain FR
BP are sable , resumed ACEI
annabelle to 30s per nursing, cards consulted, echo ordered
cont to avoid NSAIDs -d/w pt
labs in am
-
-
Date of Service: May 27, 2023
CC / HPI / ROS
-
Chief Complaint:
Hyponatremia
History of Present Illness:
sodium improving to 130 s/p 3% saline
BP stable
annabelle overnight per nursing
no fever
Review of Systems:
no n/v today
mild dizziness early in am but better now
Labs
-
Labs:
WBC 8.2 10^3/uL (4.8-10.8) 05/27/23 02:37
RBC 3.57 10^6/uL (4.20-5.40) L 05/27/23 02:37
Hgb 11.2 g/dL (12.0-16.0) L 05/27/23 02:37
Hct 33.2 % (37.0-47.0) L 05/27/23 02:37
Plt Count 245 10^3/uL (130-400) 05/27/23 02:37
Sodium 130 mmol/L (135-145) L 05/27/23 09:55
Potassium 4.1 mmol/L (3.5-5.1) 05/27/23 02:37
Chloride 97 mmol/L (98-107) L 05/27/23 02:37
Carbon Dioxide 28 mmol/L (22-30) 05/27/23 02:37
BUN 24 mg/dl (7-17) H 05/27/23 02:37
Creatinine 0.9 mg/dL (0.6-1.0) 05/27/23 02:37
eGFR > 60.00 05/27/23 02:37
Glucose 96 mg/dl (70-99) 05/27/23 02:37
Calcium 8.9 mg/dl (8.4-10.2) 05/27/23 02:37
Phosphorus 3.6 mg/dl (2.5-4.5) 05/26/23 09:18
Physical Exam
-
Vital Signs:
Vital Signs
Temp Pulse Resp BP Pulse Ox
98.0 F 55 16 136/63 99
05/27/23 07:55 05/27/23 09:23 05/27/23 07:55 05/27/23 09:23 05/27/23 07:55
Cardiovascular:: Regular rate and rhythm
Respiratory:: Bilateral: CTA
Lung Excursion:: Normal
Abdomen:: Nontender and Soft
Extremity Edema:: None: Bilateral:
Naylor Catheter: No
[2023-05-27] MEDS: MIRALAX 17 GRAMS PO (15:27)
[2023-05-27] MEDS: LOVENOX 40 MG SC (16:58)
[2023-05-27] MEDS: CRESTOR 5 MG PO (16:59)
--- NOTE | 2023-05-27 20:27 | PTCARENOTE ---
Patient with complaints of constipation. Gave metamucil and colace this morning. Contacted MD and got order for Miralax. Patient took Miralax without relief so far. Will monitor.
[2023-05-27] MEDS: AMBIEN 5 MG PO (22:42)
[2023-05-28] VITALS (7 sets, daily range): BP systolic 121–150; BP diastolic 56–86; PULSE 57–83; BMI 28.4
[2023-05-28] MEDS: SYNTHROID 75 MCG PO (05:53)
[2023-05-28] MEDS: TYLENOL 650 MG PO ×2 (05:59→20:15)
[2023-05-28 08:20] LABS: % Basophils 0.6 % (0-2); % Eosinophils 2.6 % (0-6); % Immature Granulocytes 1.4 % (0-0.5); % Lymphocytes 38.3 % (20.5-51.1); % Monocytes 7.9 % (1.7-9.3); % Neutrophils 49.2 % (42.2-75.2); Absolute Eosinophils 0.2 10^3/uL (0-0.7); Absolute Immature Granulocytes 0.1 10^3/uL (0-0.05); Absolute Lymphocytes 2.4 10^3/uL (1.2-3.4); Absolute Monocytes 0.5 10^3/uL (0.1-0.6); Absolute Neutrophils 3.1 10^3/uL (1.4-6.5); Hematocrit 34.4 % (37.0-47.0); Hemoglobin 11.7 g/dL (12.0-16.0); Mean Corpuscular Hgb 31.5 pg (27.0-31.0); Mean Corpuscular Volume 92.7 fL (81.0-99.0); Mean Platelet Volume 9.3 fL (7.4-10.4); Nucleated Red Blood Cells % 0 %; Platelet Count 232 10^3/uL (130-400); Red Blood Cell Count 3.71 10^6/uL (4.20-5.40); Red Cell Dist. Width 14.1 % (11.5-14.5); White Blood Cell Count 6.2 10^3/uL (4.8-10.8)
[2023-05-28 08:46] LABS: Blood Urea Nitrogen 16 mg/dl (7-17); Calcium 9.5 mg/dl (8.4-10.2); Carbon Dioxide 28 mmol/L (22-30); Chloride 98 mmol/L (98-107); Estimated Creatinine Clearance 57 ml/min; Glucose 109 mg/dl (70-99); Potassium 4.6 mmol/L (3.5-5.1); Sodium 131 mmol/L (135-145); eGFR > 60.00
[2023-05-28] MEDS: ATIVAN 0.5 MG PO (08:59)
[2023-05-28] MEDS: OCUVITE SOFTGEL 1 CAP PO ×2 (08:59→20:15)
[2023-05-28] MEDS: METAMUCIL, KONSYL 1 PACKET PO (08:59)
[2023-05-28] MEDS: MIRALAX 17 GRAMS PO (08:59)
[2023-05-28] MEDS: COLACE 100 MG PO ×2 (08:59→20:15)
[2023-05-28] MEDS: ZESTRIL 40 MG PO (09:00)
[2023-05-28] MEDS: VITAMIN C 500 MG PO (09:00)
[2023-05-28] MEDS: VISBIOME 1 CAP PO (09:00)
[2023-05-28] MEDS: VITAMIN D3 (cholecalciferol) 50 MCG PO (09:01)
[2023-05-28] MEDS: LIDOCAINE 4% PATCH 1 PATCH TOPICAL (09:10)
--- NOTE | 2023-05-28 10:00 | W.PN.CARDCBS ---
Addendum entered and electronically signed by Davide Paris DO 05/28/23 11:03:
I saw and examined the patient.
The Crown Blocker's note was reviewed and I agree with the note.
Comment:
Plan:
Would continue to avoid diuretics
Echo stable and reviewed with pt and daughter
May have to accept some mild permissive HTN given orthostasis.
Cont increased Lisinopril.
Outpt BardyCAM to be placed tomorrow prior to d/c
Outpt follow up arranged
Reviewed with daughter at bedside.
Please recall if needed.
Original Note:
Today's Communication / Plan
-
Na improving. avoid diuretic moving forward
echo ok
compression stockings ordered as ortho VS with drop from sitting to standing this AM
remains on lisinopril
OP Bardy monitor to be arranged
Op cardiac follow up arranged
Impression / Plan
-
Primary Acetaldehyde Converter Operator: Dr. Paris
Assessment:
Presentation with syncope
Sinus bradycardia
Hyponatremia
HTN
HLD
hypothyroidism
thoracic compression fracture
chronic back pain/spinal stenosis
anxiety
ECHO 09/2020: EF 60%, mild cLVH, aortic sclerosis, trivial AR
ECHO 05/27/23: EF 55 to 60%, mild MR, mild TR, mild SC, no significant change compared to prior study
Plan:
-Patient presents after syncopal episode while in cardiology office 05/26/23. suspected vagal vs orthostatic etiology
-noted on arrival to ER to be hyponatremic, Na 125. likely combination of new start HCTZ and lexapro, although with history of mild hyponatremia in past by records. both meds stopped at this time. Na improving, 131 on 05/27
-Echo with results as above. Reviewed with patient and daughter at bedside 05/27
-tele reviewed, sinus annabelle with 3 pauses all less than 2.5 seconds. not on av keshia blocking agents as OP. would consider for 1 week Bardy monitor to be arranged as OP
-TSH WNL
-BPs overall appear elevated, lisinopril increased to 40mg daily on 05/26. ortho VS positive this morning from sitting to standing. compression stockings ordered. may need to allow degree of permissive HTN
-PT/OT evals
-consider alternative anti-anxiety agent. on lorazepam BID as OP. defer to primary service.
-will arrange OP cardiac follow up
-d/w patient and daughter at bedside
Progress Note - Acetaldehyde Converter Operator
Subjective
Date of Service: May 28, 2023
Denies chest pain, shortness of breath, palpitations. Reported some mild lightheadedness with sitting up this morning to do orthostatic vital signs
Objective
Labs:
05/28/23 07:32
05/28/23 07:32
Labs
Hgb 11.7 g/dL (12.0-16.0) L 05/28/23 07:32
Hct 34.4 % (37.0-47.0) L 05/28/23 07:32
Plt Count 232 10^3/uL (130-400) 05/28/23 07:32
Sodium 131 mmol/L (135-145) L 05/28/23 07:32
Potassium 4.6 mmol/L (3.5-5.1) 05/28/23 07:32
BUN 16 mg/dl (7-17) 05/28/23 07:32
Creatinine 0.7 mg/dL (0.6-1.0) 05/28/23 07:32
Glucose 109 mg/dl (70-99) H 05/28/23 07:32
Vital Signs and I&O:
Vital Signs
Temp Pulse Resp BP Pulse Ox
97.4 F 57 18 139/65 96
05/28/23 07:25 05/28/23 09:00 05/28/23 07:25 05/28/23 09:00 05/28/23 07:25
Vital Signs
Temp Pulse Resp BP Pulse Ox
97.4 F 57 18 139/65 96
05/28/23 07:25 05/28/23 09:00 05/28/23 07:25 05/28/23 09:00 05/28/23 07:25
Intake & Output
05/26/23 05/27/23 05/28/23 05/29/23
07:59 07:59 07:59 07:59
Intake Total 370 / 370 1380 / 1380
Balance 370 / 370 1380 / 1380
Physical Exam
Physical Exam
GEN: No distress, awake, alert, oriented x3
HEENT: supple, anicteric, mmm, EOMI
LUNGS: CTA bilaterally, no wheezes/rales
CV: Reg and annabelle, S1/S2, no murmur
ABD: soft, BS+, NT/ND
EXT: No cyanosis, clubbing, edema
NEURO: Gross non-focal
SKIN: Warm, pink, dry. No rash
--- NOTE | 2023-05-28 11:47 | CM ---
CM following re: d/c planning
Chart reviewed
CM met with the patient at bedside; IA completed
Pt states she resides alone in a 2SH with 2STE
[employer]EN [employer] patient reports independence at baseline
Pt has no SNF hx, no recent VN hx; 5yrs ago patient had [facility], & has a shower chair, bsc, r/w, & tub rails
Pt has prescription coverage and rx's are filled at [facility]
Pt PCP-Elizabeth Acosta
Per PT/OT evals post d/c recommendations waver btwn. home no needs vs VN
CM will continue to monitor patient's progress and assist with any needs at d/c as indicated
PLAN; d/c home no needs vs home with VN
--- NOTE | 2023-05-28 12:00 | W.PN.NEPH.PH ---
Today's Communication / Plan
-
- Na stable
- labs tomorrow AM
Assessment/Plan
-
IMP:
Symptomatic hyponatremia-acute on chronic
History of hypertension
History of hypothyroidism
Hyperlipidemia
Insomnia
Plan:
A/w syncope at cards office
hyponatremia-suspect mild hypovolemia in addition new meds HCTZ and SSRI+NSAIDs, pain , U osmo 548
will hold both HCTZ and SSRI-not resume in future
normal TSH
s/p 3% saline
sodium at 131 now
encourage solute intake and maintain FR
BP are sable , resumed ACEI
annabelle to 30s per nursing, cards consulted. avoid diuretics, allow permissive HTN
cont to avoid NSAIDs -d/w pt
labs in am
-
-
Date of Service: May 28, 2023
CC / HPI / ROS
-
Chief Complaint:
Hyponatremia
History of Present Illness:
sodium improving to 131 s/p 3% saline
BP stable
annabelle during hospitalization, cardiology on board
no fever
Review of Systems:
no n/v today
mild dizziness early in am but better now
Labs
-
Labs:
WBC 6.2 10^3/uL (4.8-10.8) 05/28/23 07:32
RBC 3.71 10^6/uL (4.20-5.40) L 05/28/23 07:32
Hgb 11.7 g/dL (12.0-16.0) L 05/28/23 07:32
Hct 34.4 % (37.0-47.0) L 05/28/23 07:32
Plt Count 232 10^3/uL (130-400) 05/28/23 07:32
Sodium 131 mmol/L (135-145) L 05/28/23 07:32
Potassium 4.6 mmol/L (3.5-5.1) 05/28/23 07:32
Chloride 98 mmol/L (98-107) 05/28/23 07:32
Carbon Dioxide 28 mmol/L (22-30) 05/28/23 07:32
BUN 16 mg/dl (7-17) 05/28/23 07:32
Creatinine 0.7 mg/dL (0.6-1.0) 05/28/23 07:32
eGFR > 60.00 05/28/23 07:32
Glucose 109 mg/dl (70-99) H 05/28/23 07:32
Calcium 9.5 mg/dl (8.4-10.2) 05/28/23 07:32
Phosphorus 3.6 mg/dl (2.5-4.5) 05/26/23 09:18
Physical Exam
-
Vital Signs:
Vital Signs
Temp Pulse Resp BP Pulse Ox
97.3 F 66 18 140/68 96
05/28/23 11:48 05/28/23 11:48 05/28/23 11:48 05/28/23 11:48 05/28/23 11:48
Cardiovascular:: Regular rate and rhythm
Respiratory:: Bilateral: Coarse
Lung Excursion:: Normal
Abdomen:: Nontender and Soft
Bowel Sounds:: Normal
Extremity Edema:: None: Bilateral:
Naylor Catheter: No
--- NOTE | 2023-05-28 12:07 | W.PN.HOSP.TC ---
Today's Communication/Plan
-
monitor vitals
see plan
Continue with lisinopril
Monitor sodium
monitor on tele
Discussed with daughter at bedside
Assessment / Plan
Assessment / Plan
General: Well Nourished and No Apparent Distress
HEENT: Anicteric and Moist mucous membranes
Respiratory: Clear; No Wheezes
Cardiac: S1/S2 and Regular Rhythm
Breast: Deferred by me
GI: Soft, Non Tender, Non Distended and Normal Bowel Sounds
Rectal: Deferred by Provider
Genito-urinary: No Naylor
Musculoskeletal: No Edema
Neuro: Awake, Alert and Oriented
Psych: Calm and Intact Judgment/Insight
Symptomatic hyponatremia
Likely could be associated with HCTZ, Lexapro
Nephrology following
monitor sodium; s/p 3% 05/25
Na now 131; monitor
Syncope prior to admission
could be vasovagal
on tele earlier this morning with sinus bradycardia heart rate as low as 38. 2.2-second pause.
Patient follows up with Dr. Paris outpatient, cardiology following. plan for conveyor monitor on dc. echo 05/26 with EF 55-60
TSH wnl
History of hypertension
Continue lisinopril; increased to 40mg. permissive HTN
Hold HCTZ
Hydralazine as needed if needed
History of hypothyroidism
Continue with Synthroid
Hyperlipidemia
Anxiety
on lorazepam
Insomnia
On Ambien as needed
DVT prophylaxis
Lovenox
Full code
I spent a total of 53 minutes with the patient or on the floor. More than 50% of this time involved counseling and coordination of care.
Anticipated Discharge: Within 24 hours
Subjective/Interval History
-
Date of Service: May 28, 2023
denies pain
Objective Data
-
Labs:
Laboratory Results
05/28/23
07:32
WBC 6.2
Hgb 11.7 L
Hct 34.4 L
Plt Count 232
Sodium 131 L
Potassium 4.6
Chloride 98
Carbon Dioxide 28
BUN 16
Creatinine 0.7
Glucose 109 H
Calcium 9.5
Vital Signs:
Vital Signs
Temp Pulse Resp BP Pulse Ox
97.3 F 66 18 140/68 96
05/28/23 11:48 05/28/23 11:48 05/28/23 11:48 05/28/23 11:48 05/28/23 11:48
I&O
05/27/23 05/28/23 05/29/23
06:59 06:59 06:59
Intake Total 370 / 370 1380 / 1380
Balance 370 / 370 1380 / 1380
[2023-05-28] MEDS: DULCOLAX 10 MG RECTAL (12:23)
[2023-05-28] MEDS: LMX 4 1 APPLIC TOPICAL (16:02)
--- NOTE | 2023-05-28 16:28 | PTCARENOTE ---
Patient with constipation. Received miralax, metamucil, colace, and dulcolax rectal suppository today. Patient states that she did have a moderate amount of hard stool but does feel that she will be able to move bowels again. Will monitor.
[2023-05-28] MEDS: LOVENOX 40 MG SC (18:09)
[2023-05-28] MEDS: CRESTOR 5 MG PO (18:09)
[2023-05-28] MEDS: AMBIEN 5 MG PO (22:44)
[2023-05-29] VITALS (7 sets, daily range): BP systolic 109–149; BP diastolic 57–72; PULSE 57–75; BMI 28.8
[2023-05-29] MEDS: SYNTHROID 75 MCG PO (04:20)
[2023-05-29] MEDS: TYLENOL 650 MG PO ×3 (04:20→20:14)
[2023-05-29 07:47] LABS: % Basophils 0.3 % (0-2); % Eosinophils 1.6 % (0-6); % Lymphocytes 32.8 % (20.5-51.1); % Monocytes 8.4 % (1.7-9.3); % Neutrophils 55.9 % (42.2-75.2); Absolute Eosinophils 0.1 10^3/uL (0-0.7); Absolute Immature Granulocytes 0.1 10^3/uL (0-0.05); Absolute Lymphocytes 2.4 10^3/uL (1.2-3.4); Absolute Monocytes 0.6 10^3/uL (0.1-0.6); Absolute Neutrophils 4.1 10^3/uL (1.4-6.5); Hematocrit 32.8 % (37.0-47.0); Hemoglobin 11.1 g/dL (12.0-16.0); Mean Corp Hgb Conc. 33.8 g/dL (33.0-37.0); Mean Corpuscular Hgb 31.4 pg (27.0-31.0); Mean Corpuscular Volume 92.7 fL (81.0-99.0); Mean Platelet Volume 9.4 fL (7.4-10.4); Nucleated Red Blood Cells % 0 %; Platelet Count 224 10^3/uL (130-400); Red Blood Cell Count 3.54 10^6/uL (4.20-5.40); White Blood Cell Count 7.3 10^3/uL (4.8-10.8)
[2023-05-29] MEDS: VISBIOME 1 CAP PO (08:08)
[2023-05-29] MEDS: OCUVITE SOFTGEL 1 CAP PO ×2 (08:10→20:15)
[2023-05-29] MEDS: MIRALAX 17 GRAMS PO (08:10)
[2023-05-29] MEDS: VITAMIN D3 (cholecalciferol) 50 MCG PO (08:10)
[2023-05-29] MEDS: METAMUCIL, KONSYL 1 PACKET PO (08:10)
[2023-05-29] MEDS: VITAMIN C 500 MG PO (08:10)
[2023-05-29] MEDS: ATIVAN 0.5 MG PO (08:10)
[2023-05-29] MEDS: ZESTRIL 40 MG PO (08:11)
[2023-05-29 08:13] LABS: Blood Urea Nitrogen 19 mg/dl (7-17); Calcium 9.4 mg/dl (8.4-10.2); Carbon Dioxide 28 mmol/L (22-30); Chloride 95 mmol/L (98-107); Estimated Creatinine Clearance 57 ml/min; Glucose 100 mg/dl (70-99); Potassium 4.5 mmol/L (3.5-5.1); Sodium 130 mmol/L (135-145); eGFR > 60.00
[2023-05-29] MEDS: COLACE 100 MG PO ×2 (09:53→20:15)
--- NOTE | 2023-05-29 11:59 | W.PN.HOSP.TC ---
Today's Communication/Plan
-
monitor vitals
See plan
Enema today
Monitor sodium, nephrology to see today today
Daughter updated at bedside
Assessment / Plan
Assessment / Plan
General: Well Nourished and No Apparent Distress
HEENT: Anicteric and Moist mucous membranes
Respiratory: Clear; No Wheezes
Cardiac: S1/S2 and Regular Rhythm
Breast: Deferred by me
GI: Soft, Non Tender, Non Distended and Normal Bowel Sounds
Rectal: Deferred by Provider
Genito-urinary: No Naylor
Musculoskeletal: No Edema
Neuro: Awake, Alert and Oriented
Psych: Calm and Intact Judgment/Insight
Symptomatic hyponatremia
Likely could be associated with HCTZ, Lexapro
Nephrology following
monitor sodium; s/p 3% 05/25
Na now 130; monitor
Syncope prior to admission
could be vasovagal
on tele earlier this morning with sinus bradycardia heart rate as low as 38. 2.2-second pause.
Patient follows up with Dr. Paris outpatient, cardiology following. plan for media monitor on dc. echo 05/26 with EF 55-60
TSH wnl
History of hypertension
Continue lisinopril; increased to 40mg. permissive HTN
Hold HCTZ
Hydralazine as needed if needed
# Constipation
Laxatives
Enema
History of hypothyroidism
Continue with Synthroid
Hyperlipidemia
Anxiety
on lorazepam
Insomnia
On Ambien as needed
DVT prophylaxis
Lovenox
Full code
Anticipated Discharge: Within 24 hours
Subjective/Interval History
-
Date of Service: May 29, 2023
denies nausea
Objective Data
-
Labs:
Laboratory Results
05/29/23
07:01
WBC 7.3
Hgb 11.1 L
Hct 32.8 L
Plt Count 224
Sodium 130 L
Potassium 4.5
Chloride 95 L
Carbon Dioxide 28
BUN 19 H
Creatinine 0.7
Glucose 100 H
Calcium 9.4
Vital Signs:
Vital Signs
Temp Pulse Resp BP Pulse Ox
98 F 62 18 127/70 97
05/29/23 07:00 05/29/23 08:11 05/29/23 07:00 05/29/23 08:11 05/29/23 07:00
I&O
05/28/23 05/29/23 05/30/23
06:59 06:59 06:59
Intake Total 1380 / 1380 720 / 720
Balance 1380 / 1380 720 / 720
--- NOTE | 2023-05-29 13:31 | W.PN.NEPH.PH ---
Today's Communication / Plan
-
- monitor Na
Assessment/Plan
-
IMP:
Symptomatic hyponatremia-acute on chronic
History of hypertension
History of hypothyroidism
Hyperlipidemia
Insomnia
Plan:
A/w syncope at cards office
hyponatremia-suspect mild hypovolemia in addition new meds HCTZ and SSRI+NSAIDs, pain , U osmo 548
will hold both HCTZ and SSRI-not resume in future
normal TSH
s/p 3% saline
sodium at 130 now
encourage solute intake and maintain FR
BP are sable , resumed ACEI
annabelle to 30s per nursing, cards consulted. avoid diuretics, allow permissive HTN
cont to avoid NSAIDs
patient will be monitored for 1 more day. If Na >130 tomorrow likely can be discharged
-
-
Date of Service: May 29, 2023
CC / HPI / ROS
-
Chief Complaint:
Hyponatremia
History of Present Illness:
sodium improving to 130 s/p 3% saline
BP stable
annabelle during hospitalization, cardiology on board
no fever
Review of Systems:
no n/v today
increased PO intake now
Labs
-
Labs:
WBC 7.3 10^3/uL (4.8-10.8) 05/29/23 07:01
RBC 3.54 10^6/uL (4.20-5.40) L 05/29/23 07:01
Hgb 11.1 g/dL (12.0-16.0) L 05/29/23 07:01
Hct 32.8 % (37.0-47.0) L 05/29/23 07:01
Plt Count 224 10^3/uL (130-400) 05/29/23 07:01
Sodium 130 mmol/L (135-145) L 05/29/23 07:01
Potassium 4.5 mmol/L (3.5-5.1) 05/29/23 07:01
Chloride 95 mmol/L (98-107) L 05/29/23 07:01
Carbon Dioxide 28 mmol/L (22-30) 05/29/23 07:01
BUN 19 mg/dl (7-17) H 05/29/23 07:01
Creatinine 0.7 mg/dL (0.6-1.0) 05/29/23 07:01
eGFR > 60.00 05/29/23 07:01
Glucose 100 mg/dl (70-99) H 05/29/23 07:01
Calcium 9.4 mg/dl (8.4-10.2) 05/29/23 07:01
Phosphorus 3.6 mg/dl (2.5-4.5) 05/26/23 09:18
Physical Exam
-
Vital Signs:
Vital Signs
Temp Pulse Resp BP Pulse Ox
98 F 62 18 127/70 97
05/29/23 07:00 05/29/23 08:11 05/29/23 07:00 05/29/23 08:11 05/29/23 07:00
Cardiovascular:: Regular rate and rhythm
Respiratory:: Bilateral: CTA
Lung Excursion:: Normal
Abdomen:: Nontender and Soft
Bowel Sounds:: Normal
Extremity Edema:: None: Bilateral:
Naylor Catheter: No
[2023-05-29] MEDS: LIDOCAINE 4% PATCH 1 PATCH TOPICAL (14:05)
[2023-05-29] MEDS: CRESTOR 5 MG PO (17:02)
[2023-05-29] MEDS: LOVENOX 40 MG SC (17:02)
[2023-05-29] MEDS: AMBIEN 5 MG PO (22:57)
[2023-05-30 03:44] VITALS: BP 109/55
[2023-05-30 04:13] VITALS: BMI 28.8
[2023-05-30] MEDS: SYNTHROID 75 MCG PO (04:34)
[2023-05-30] MEDS: TYLENOL 650 MG PO ×2 (04:36→12:41)
[2023-05-30 04:50] LABS: % Basophils 0.4 % (0-2); % Eosinophils 1.5 % (0-6); % Lymphocytes 35.9 % (20.5-51.1); % Neutrophils 53.2 % (42.2-75.2); Absolute Eosinophils 0.1 10^3/uL (0-0.7); Absolute Immature Granulocytes 0.1 10^3/uL (0-0.05); Absolute Lymphocytes 2.6 10^3/uL (1.2-3.4); Absolute Monocytes 0.6 10^3/uL (0.1-0.6); Absolute Neutrophils 3.8 10^3/uL (1.4-6.5); Hematocrit 33.1 % (37.0-47.0); Hemoglobin 11.2 g/dL (12.0-16.0); Mean Corp Hgb Conc. 33.8 g/dL (33.0-37.0); Mean Corpuscular Hgb 31.4 pg (27.0-31.0); Mean Corpuscular Volume 92.7 fL (81.0-99.0); Mean Platelet Volume 9.5 fL (7.4-10.4); Nucleated Red Blood Cells % 0 %; Platelet Count 229 10^3/uL (130-400); Red Blood Cell Count 3.57 10^6/uL (4.20-5.40); Red Cell Dist. Width 14.1 % (11.5-14.5); White Blood Cell Count 7.2 10^3/uL (4.8-10.8)
[2023-05-30 05:16] LABS: Blood Urea Nitrogen 22 mg/dl (7-17); Calcium 9.6 mg/dl (8.4-10.2); Carbon Dioxide 27 mmol/L (22-30); Chloride 96 mmol/L (98-107); Estimated Creatinine Clearance 57 ml/min; Glucose 103 mg/dl (70-99); Potassium 4.5 mmol/L (3.5-5.1); Sodium 130 mmol/L (135-145); eGFR > 60.00
[2023-05-30 08:00] VITALS: BP 123/65; BP 138/65; BP 151/64; PULSE 62; PULSE 63; PULSE 65
[2023-05-30] MEDS: MIRALAX 17 GRAMS PO (08:19)
[2023-05-30] MEDS: METAMUCIL, KONSYL 1 PACKET PO (08:19)
[2023-05-30] MEDS: VISBIOME 1 CAP PO (08:20)
[2023-05-30] MEDS: VITAMIN C 500 MG PO (08:20)
[2023-05-30] MEDS: VITAMIN D3 (cholecalciferol) 50 MCG PO (08:21)
[2023-05-30] MEDS: ZESTRIL 40 MG PO (08:21)
[2023-05-30] MEDS: ATIVAN 0.5 MG PO (08:21)
[2023-05-30] MEDS: OCUVITE SOFTGEL 1 CAP PO ×2 (08:22→21:00)
[2023-05-30] MEDS: COLACE 100 MG PO ×2 (08:22→21:00)
--- NOTE | 2023-05-30 11:01 | W.PN.HOSP.TC ---
Today's Communication/Plan
-
Monitor vitals
See plan
Sodium still 130, nephrology to see today
registered nurse cardiac
laxatives
Assessment / Plan
Assessment / Plan
General: Well Nourished and No Apparent Distress
HEENT: Anicteric and Moist mucous membranes
Respiratory: Clear; No Wheezes
Cardiac: S1/S2 and Regular Rhythm
GI: Soft, Non Tender, Non Distended and Normal Bowel Sounds
Genito-urinary: No Naylor
Musculoskeletal: No Edema
Neuro: Awake, Alert and Oriented
Psych: Calm and Intact Judgment/Insight
Symptomatic hyponatremia
Likely could be associated with HCTZ, Lexapro
Nephrology following
monitor sodium; s/p 3% 05/25
Na still 130; monitor; nephrology for further recs
Syncope prior to admission
could be vasovagal
on tele earlier this morning with sinus bradycardia heart rate as low as 38. 2.2-second pause.
Patient follows up with Dr. Paris outpatient, cardiology following. plan for registered nurse cardiac on dc. echo 05/26 with EF 55-60
TSH wnl
Outpatient registered nurse cardiac prior to DC
History of hypertension
Continue lisinopril; increased to 40mg. permissive HTN
Hold HCTZ
Hydralazine as needed if needed
# Constipation
Laxatives
Responded to enema
History of hypothyroidism
Continue with Synthroid
Hyperlipidemia
Anxiety
on lorazepam
Insomnia
On Ambien as needed
DVT prophylaxis
Lovenox
Full code
Anticipated Discharge: Within 24 hours
Subjective/Interval History
-
Date of Service: May 30, 2023
denies nausea
Objective Data
-
Labs:
Laboratory Results
05/30/23
04:29
WBC 7.2
Hgb 11.2 L
Hct 33.1 L
Plt Count 229
Sodium 130 L
Potassium 4.5
Chloride 96 L
Carbon Dioxide 27
BUN 22 H
Creatinine 0.7
Glucose 103 H
Calcium 9.6
Vital Signs:
Vital Signs
Temp Pulse Resp BP Pulse Ox
97.2 F 60 18 151/64 96
05/30/23 08:00 05/30/23 08:21 05/30/23 08:00 05/30/23 08:21 05/30/23 10:18
I&O
05/29/23 05/30/23 05/31/23
06:59 06:59 06:59
Intake Total 720 / 720 1000 / 1000
Balance 720 / 720 1000 / 1000
[2023-05-30 11:34] VITALS: BP 135/64
[2023-05-30] MEDS: LIDOCAINE 4% PATCH 1 PATCH TOPICAL (13:42)
[2023-05-30] MEDS: LMX 4 1 APPLIC TOPICAL ×2 (13:45→18:28)
[2023-05-30 15:00] VITALS: BP 150/68
--- NOTE | 2023-05-30 15:49 | W.PN.NEPH.PH ---
Today's Communication / Plan
-
low dose samsca
Assessment/Plan
-
IMP:
Symptomatic hyponatremia-acute on chronic
History of hypertension
History of hypothyroidism
Hyperlipidemia
Insomnia
Plan:
A/w syncope at cards office
hyponatremia-suspect mild hypovolemia in addition new meds HCTZ and SSRI+NSAIDs, pain , U osmo 548
will hold both HCTZ and SSRI-not resume in future
normal TSH
sodium remains stable at 130, will give samsca
encourage solute intake and maintain FR
BP are sable , resumed ACEI
now on Holter for annabelle on admit
cont to avoid NSAIDs
d/c tomorrow
BMP in 1week with PCP
-
-
Date of Service: May 30, 2023
CC / HPI / ROS
-
Chief Complaint:
Hyponatremia
History of Present Illness:
sodium stable at 130
BP stable
annabelle during hospitalization, cardiology on board
no fever
Review of Systems:
no n/v today
constipation improved
Labs
-
Labs:
WBC 7.2 10^3/uL (4.8-10.8) 05/30/23 04:29
RBC 3.57 10^6/uL (4.20-5.40) L 05/30/23 04:29
Hgb 11.2 g/dL (12.0-16.0) L 05/30/23 04:29
Hct 33.1 % (37.0-47.0) L 05/30/23 04:29
Plt Count 229 10^3/uL (130-400) 05/30/23 04:29
Sodium 130 mmol/L (135-145) L 05/30/23 04:29
Potassium 4.5 mmol/L (3.5-5.1) 05/30/23 04:29
Chloride 96 mmol/L (98-107) L 05/30/23 04:29
Carbon Dioxide 27 mmol/L (22-30) 05/30/23 04:29
BUN 22 mg/dl (7-17) H 05/30/23 04:29
Creatinine 0.7 mg/dL (0.6-1.0) 05/30/23 04:29
eGFR > 60.00 05/30/23 04:29
Glucose 103 mg/dl (70-99) H 05/30/23 04:29
Calcium 9.6 mg/dl (8.4-10.2) 05/30/23 04:29
Phosphorus 3.6 mg/dl (2.5-4.5) 05/26/23 09:18
Physical Exam
-
Vital Signs:
Vital Signs
Temp Pulse Resp BP Pulse Ox
97.9 F 63 20 150/68 96
05/30/23 15:00 05/30/23 15:00 05/30/23 15:00 05/30/23 15:00 05/30/23 15:00
Cardiovascular:: Regular rate and rhythm
Respiratory:: Bilateral: CTA
Lung Excursion:: Normal
Abdomen:: Nontender and Soft
Extremity Edema:: None: Bilateral:
Naylor Catheter: No
[2023-05-30] MEDS: SAMSCA 7.5 MG PO (16:39)
[2023-05-30] MEDS: LOVENOX 40 MG SC (17:30)
[2023-05-30] MEDS: CRESTOR 5 MG PO (17:30)
[2023-05-30 19:55] VITALS: BP 129/62; BP 139/54; BP 141/59; PULSE 66; PULSE 71; PULSE 79
[2023-05-30 23:14] VITALS: BP 134/68
[2023-05-31 03:31] VITALS: BP 124/62
[2023-05-31 05:24] VITALS: BMI 28.1
[2023-05-31] MEDS: SYNTHROID 75 MCG PO (06:27)
[2023-05-31 08:42] VITALS: BP 130/64; BP 137/63; BP 139/59; PULSE 56; PULSE 62; PULSE 71
[2023-05-31 08:54] LABS: % Basophils 0.6 % (0-2); % Eosinophils 1.9 % (0-6); % Monocytes 9.5 % (1.7-9.3); Absolute Eosinophils 0.1 10^3/uL (0-0.7); Absolute Immature Granulocytes 0.1 10^3/uL (0-0.05); Absolute Lymphocytes 2.1 10^3/uL (1.2-3.4); Absolute Monocytes 0.5 10^3/uL (0.1-0.6); Absolute Neutrophils 2.1 10^3/uL (1.4-6.5); Hematocrit 35.3 % (37.0-47.0); Hemoglobin 11.6 g/dL (12.0-16.0); Mean Corp Hgb Conc. 32.9 g/dL (33.0-37.0); Mean Corpuscular Volume 94.4 fL (81.0-99.0); Mean Platelet Volume 9.8 fL (7.4-10.4); Nucleated Red Blood Cells % 0 %; Platelet Count 221 10^3/uL (130-400); Red Blood Cell Count 3.74 10^6/uL (4.20-5.40); Red Cell Dist. Width 14.4 % (11.5-14.5); White Blood Cell Count 4.9 10^3/uL (4.8-10.8)
[2023-05-31] MEDS: TYLENOL 650 MG PO (08:58)
[2023-05-31] MEDS: METAMUCIL, KONSYL 1 PACKET PO (08:59)
[2023-05-31] MEDS: ZESTRIL 40 MG PO (08:59)
[2023-05-31] MEDS: COLACE 100 MG PO (08:59)
[2023-05-31] MEDS: MIRALAX 17 GRAMS PO (08:59)
[2023-05-31] MEDS: LMX 4 1 APPLIC TOPICAL (08:59)
[2023-05-31] MEDS: OCUVITE SOFTGEL 1 CAP PO (08:59)
[2023-05-31] MEDS: VISBIOME 1 CAP PO (09:00)
[2023-05-31] MEDS: ATIVAN 0.5 MG PO (09:00)
[2023-05-31] MEDS: VITAMIN C 500 MG PO (09:00)
[2023-05-31] MEDS: VITAMIN D3 (cholecalciferol) 50 MCG PO (09:00)
[2023-05-31 09:40] LABS: Blood Urea Nitrogen 22 mg/dl (7-17); Calcium 9.5 mg/dl (8.4-10.2); Carbon Dioxide 24 mmol/L (22-30); Chloride 103 mmol/L (98-107); Estimated Creatinine Clearance 50 ml/min; Glucose 90 mg/dl (70-99); Potassium 4.5 mmol/L (3.5-5.1); Sodium 133 mmol/L (135-145); eGFR > 60.00
--- NOTE | 2023-05-31 11:07 | W.PN.NEPH.PH ---
Today's Communication / Plan
-
ok for d/c
Assessment/Plan
-
IMP:
Symptomatic hyponatremia-acute on chronic
History of hypertension
History of hypothyroidism
Hyperlipidemia
Insomnia
Plan:
A/w syncope at cards office
hyponatremia-suspect mild hypovolemia in addition new meds HCTZ and SSRI+NSAIDs, pain , U osmo 548
will hold both HCTZ and SSRI-not resume in future
normal TSH
sodium better post samsca
encourage solute intake and maintain FR 48ounces/day
BP are sable , resumed ACEI
now on Holter for annabelle on admit
cont to avoid NSAIDs
d/c today
BMP in 1week with PCP
d/w primary
-
-
Date of Service: May 31, 2023
CC / HPI / ROS
-
Chief Complaint:
Hyponatremia
History of Present Illness:
sodium better at 133 post samsca
BP stable
annabelle during hospitalization, HR in 50-60s
no fever
Review of Systems:
no n/v today
constipation improved
Labs
-
Labs:
WBC 4.9 10^3/uL (4.8-10.8) 05/31/23 07:05
RBC 3.74 10^6/uL (4.20-5.40) L 05/31/23 07:05
Hgb 11.6 g/dL (12.0-16.0) L 05/31/23 07:05
Hct 35.3 % (37.0-47.0) L 05/31/23 07:05
Plt Count 221 10^3/uL (130-400) 05/31/23 07:05
Sodium 133 mmol/L (135-145) L 05/31/23 07:05
Potassium 4.5 mmol/L (3.5-5.1) 05/31/23 07:05
Chloride 103 mmol/L (98-107) 05/31/23 07:05
Carbon Dioxide 24 mmol/L (22-30) 05/31/23 07:05
BUN 22 mg/dl (7-17) H 05/31/23 07:05
Creatinine 0.8 mg/dL (0.6-1.0) 05/31/23 07:05
eGFR > 60.00 05/31/23 07:05
Glucose 90 mg/dl (70-99) 05/31/23 07:05
Calcium 9.5 mg/dl (8.4-10.2) 05/31/23 07:05
Phosphorus 3.6 mg/dl (2.5-4.5) 05/26/23 09:18
Physical Exam
-
Vital Signs:
Vital Signs
Temp Pulse Resp BP Pulse Ox
97.5 F 56 18 139/59 96
05/31/23 08:42 05/31/23 08:59 05/31/23 08:42 05/31/23 08:59 05/31/23 10:14
Cardiovascular:: Regular rate and rhythm
Respiratory:: Bilateral: CTA
Lung Excursion:: Normal
Extremity Edema:: None: Bilateral:
Naylor Catheter: No
[2023-05-31 11:21] VITALS: BP 117/62
--- NOTE | 2023-05-31 11:27 | W.PN.HOSP.TC ---
Today's Communication/Plan
-
Monitor vital signs see plan
Discharge today
Discussed with daughter at bedside
Time of discharge 37 minutes
Assessment / Plan
Assessment / Plan
General: Well Nourished and No Apparent Distress
HEENT: Anicteric and Moist mucous membranes
Respiratory: Clear; No Wheezes
Cardiac: S1/S2 and Regular Rhythm
GI: Soft, Non Tender, Non Distended and Normal Bowel Sounds
Genito-urinary: No Naylor
Musculoskeletal: No Edema
Neuro: Awake, Alert and Oriented
Psych: Calm and Intact Judgment/Insight
Symptomatic hyponatremia
Likely could be associated with HCTZ, Lexapro
Nephrology following
monitor sodium; s/p 3% 05/25
Sodium now 133, status post Samsca 05/29.; Per nephrology DC on fluid restriction and BMP next week
Syncope prior to admission
could be vasovagal
on tele earlier this morning with sinus bradycardia heart rate as low as 38. 2.2-second pause.
Patient follows up with Dr. Paris outpatient, cardiology following. plan for surveillance system monitor on dc. echo 05/26 with EF 55-60
TSH wnl
Outpatient surveillance system monitor prior to DC; received Holter monitor
History of hypertension
Continue lisinopril; increased to 40mg. permissive HTN
Hold HCTZ
Hydralazine as needed if needed
# Constipation
Laxatives
Responded to enema
History of hypothyroidism
Continue with Synthroid
Hyperlipidemia
Anxiety
on lorazepam
Insomnia
On Ambien as needed
DVT prophylaxis
Lovenox
Full code
Anticipated Discharge: Today
Subjective/Interval History
-
Date of Service: May 31, 2023
Denies pain
Objective Data
-
Labs:
Laboratory Results
05/31/23
07:05
WBC 4.9
Hgb 11.6 L
Hct 35.3 L
Plt Count 221
Sodium 133 L
Potassium 4.5
Chloride 103
Carbon Dioxide 24
BUN 22 H
Creatinine 0.8
Glucose 90
Calcium 9.5
Vital Signs:
Vital Signs
Temp Pulse Resp BP Pulse Ox
97.8 F 62 18 117/62 96
05/31/23 11:21 05/31/23 11:21 05/31/23 11:21 05/31/23 11:21 05/31/23 11:21
I&O
05/30/23 05/31/23 06/01/23
06:59 06:59 06:59
Intake Total 1000 / 1000 360 / 360
Balance 1000 / 1000 360 / 360
--- NOTE | 2023-05-31 11:32 | W.DCSUMMARY ---
Discharge Summary
Discharge Data
Date of Admission: 05/26/23
Date of Discharge: 05/31/23
-
Pending Results: No
Hospital Course
82-year-old female with past medical history of hypothyroidism, hyperlipidemia, anxiety, insomnia came to the hospital with symptomatic hyponatremia. Hyponatremia was thought was likely secondary to hydrochlorothiazide and Lexapro. Patient was
initially requiring 3% saline. Patient discharge sodium was 133. Patient did require 1 dose of Samsca on this hospitalization. Patient was seen by nephrology throughout hospitalization and was instructed to continue fluid restriction outpatient.
Patient did had a syncopal episode prior to the admission at the cardiology office. She did had appears of bradycardia on telemetry. Patient was seen by cardiology and was recommended Holter monitor outpatient. For patient blood pressure her
lisinopril was increased to 40 mg daily. Echocardiogram was done which showed EF of 55 to 60%. Once patient symptoms improved, she was then discharged home with instructions to follow-up with all her physicians outpatient. On discharge she was
instructed to get a BMP done next week outpatient.
Discharge Plan
-
Patient Disposition: Home (Routine Discharge)
Discharge Diagnosis/Procedures: Symptomatic hyponatremia
Syncope
Bradycardia
Essential hypertension
Constipation
Condition: Fair
Diet: As tolerated and Restrict fluids to 48 oz
Activity: As tolerated
Driving Restrictions: As prior to admission
Bathing Restrictions: None
Blood Work: BMP next week with primary care provider
Activity Restrictions/Additional Instructions:
STOP HCTZ and lexapro!
Referrals:
Yeimi Lott CRNP [Specified Professional Personl] - 06/09/23 1:40 pm (You have a cardiology follow-up appointment at the [facility]. Please call with questions)
Elizabeth Acosta MD [Family Provider] - in less than 1 week
Prescriptions:
New
polyethylene glycol 3350 [HealthyLax] 17 gram Powder In Packet
17 g PO DAILY Qty: 30 0RF
lisinopril 40 mg tablet
40 mg PO DAILY Qty: 30 0RF
Continued
levothyroxine 75 MCG tablet
75 mcg PO DAILY AT 0700
lorazepam 0.5 MG tablet
0.5 mg PO DAILY
zolpidem 5 MG tablet
5 mg PO HSPRN PRN (Reason: sleep)
lidocaine 1 PATCH adhesive patch,medicated
1 patch topical DAILYPRN PRN (Reason: thoracic back)
rosuvastatin 5 MG tablet
5 mg PO QPM
PreserVision AREDS-2 1 EACH capsule
1 ea PO BID
docusate sodium 100 MG capsule
100 mg PO BID Qty: 60 0RF
psyllium Packet
1 packet PO DAILY
ascorbic acid (vitamin C) [Vitamin C] 500 mg Tablet
500 mg PO DAILY
Visbiome 112.5 billion cell Capsule
1 cap PO DAILY
cholecalciferol (vitamin D3) [Vitamin D3] 50 mcg (2,000 unit) Tablet
50 mcg PO DAILY
Discontinued
lisinopril 30 mg Tablet
30 mg PO DAILY
hydrochlorothiazide 25 mg Tablet
25 mg PO DAILY
escitalopram oxalate [Lexapro] 10 mg Tablet
10 mg PO QPM
Discharge Orders:
Discharge Patient (As Directed); Ordered 05/31/23
Ordered By: Major Pan
Discharge Date and Time
Discharge Date/Time: 05/31/23 12:55
--- NOTE | 2023-05-31 13:34 | CM ---
MD entered order for discharge .
Spoke with pt and dgt Kaleigh at bedside . Kaleigh [address] drive her home.
IMM reviewed she agrees with dc. IMM signed copy given Signed IMM on chart.
Pt requested [facility] SN only Referral placed in care port.Cluster Bore Operator aware.
PLAN Home with [facility]
== END 2023-05-31 12:55 | disposition home health service (06) | DRG 312 ==
LOC: 4 EAST ACU 11:44
PROVIDERS: ADMITTING PHYSICIAN Internal Medicine; CONSULT PHYSICIAN Internal Medicine; EMERGENCY PHYSICIAN Emergency Medicine; FAMILY PHYSICIAN Internal Medicine; OTHER PHYSICIAN Internal Medicine Interventional Cardiology
DX: R55 Syncope and collapse (principal); E87.1 Hypo-osmolality and hyponatremia; T50.2X5A Adverse effect of carbonic-anhydrase inhibitors, benzothiadiazides and other diuretics, initial encounter; Z87.891 Personal history of nicotine dependence; Z11.52 Encounter for screening for COVID-19; G47.00 Insomnia, unspecified; E78.00 Pure hypercholesterolemia, unspecified; F41.9 Anxiety disorder, unspecified; K59.00 Constipation, unspecified; I10 Essential (primary) hypertension
CPT/HCPCS: 80048; 81003; 82962; 83735; 83930; 83935; 84100; 84295; 84300; 84443; 85025; 87502; 87811; 93005; 93306; 96361; 96374; 97116; 97162; 97166; 99285

== ENCOUNTER → 2023-12-15 13:07 | Outpatient (REF) | payer OTHER, SELFPAY | LOC: RAD 13:07 | PROVIDERS: ATTENDING PHYSICIAN Nuclear Medicine Nuclear Cardiology; FAMILY PHYSICIAN Internal Medicine | DX: I65.23 Occlusion and stenosis of bilateral carotid arteries (principal) | CPT/HCPCS: 93880 ==

== ENCOUNTER → 2023-12-16 10:33 | Outpatient (REF) | payer OTHER, SELFPAY | LOC: WDC 10:33 | PROVIDERS: ATTENDING PHYSICIAN Internal Medicine | DX: Z78.0 Asymptomatic menopausal state (principal); Z12.31 Encounter for screening mammogram for malignant neoplasm of breast | CPT/HCPCS: 77063; 77067; 77080 ==

== ENCOUNTER → 2024-03-19 15:56 | Outpatient (REF) | payer OTHER, SELFPAY | LOC: RAD 15:56 | PROVIDERS: ATTENDING PHYSICIAN Nurse Practitioner Family; FAMILY PHYSICIAN Internal Medicine | DX: J40 Bronchitis, not specified as acute or chronic (principal) | CPT/HCPCS: 71046 ==

== ENCOUNTER → 2024-05-13 09:30 | Outpatient (REF) | payer OTHER, SELFPAY | LOC: REG 09:30 | PROVIDERS: ATTENDING PHYSICIAN Nurse Practitioner Family; FAMILY PHYSICIAN Internal Medicine | DX: J18.9 Pneumonia, unspecified organism (principal) | CPT/HCPCS: 71046 ==

== ENCOUNTER 2024-07-17 19:20 | Emergency (ER) | payer OTHER, SELFPAY ==
[2024-07-17 19:23] VITALS: BP 178/104
[2024-07-17 19:58] LABS: Urine Albumin Negative (Neg - Trace); Urine Bilirubin Negative (Negative); Urine Character Clear (Clear); Urine Color Yellow; Urine Glucose Negative (Negative); Urine Ketone Negative (Negative); Urine Leukocyte Negative (Negative); Urine Nitrite Negative (Negative); Urine Occult Blood Negative (Negative); Urine Urobilinogen Negative (Neg - 1+)
--- NOTE | 2024-07-17 20:18 | ED.GENMED ---
History of Present Illness
General
Chief Complaint: Abdominal Pain
Source: patient
Exam Limitations: none
Time Seen by Provider: 07/17/24 19:52
Nursing documentation reviewed up to this point in time: agreed with
History of Present Illness
History of Present Illness:
Patient is an 83-year-old female who presents to the ER for evaluation of left-sided abdominal pain. Patient reports for the past several days she has had left-sided low back pain she thought she pulled a muscle but today pain started in her left
abdomen. She reports this pain is consistent with her diverticulitis pain that she has had in the past. She denies any nausea vomiting. She did take Motrin at 3:00pm which seemed to help her symptoms. She denies any urinary symptoms. She denies
any fever or chills. no prior abdominal surgery. no cp no sob
Last bowel movement was yesterday
Past History
Past History
ED Past Medical History: HTN, Hypercholesterolemia, Hypothyroidism and Other (Diverticular disease, anxiety, chronic back pain, or near syncope syndrome with a negative workup, spinal stenosis, fractured lumbar spine); Negative Cancer or NIDDM
ED Past Surgical History: Other (Bilateral bunionectomy)
Social History
Tobacco: Former smoker
Alcohol: None
Drug: None
Personal:
Living: with family
Employment: Retired
Family History
Family History: Early CAD and Other
Review of Systems
Review of Systems
Allergies reviewed?: Yes
All Other Systems: ROS reviewed and negative except as documented in HPI and ROS
Constitutional: Reports no symptoms; Denies fever, fatigue or chills
Respiratory: Reports no symptoms
Cardiac: Reports no symptoms
ABD/GI: Reports abdominal pain (left sided abd pain )
: Reports no symptoms
Musculoskeletal: Reports back pain (left lower back pain )
Skin: Reports no symptoms
Neurological: Reports no symptoms
Psychiatric: Reports no symptoms
Phy Exam
General Physical Exam
General Presentation: no apparent distress
General age: appears stated age
General Skin: warm and dry
General Habitus: normal
General Mental: alert
General Hydration: appears well hydrated
Neurological Exam
Neurological Exam: alert and oriented x3
Course
Orders/Labs/Results
Orders:
Orders
07/17/24 19:35
Urinalysis Reflex To Culture Urgent
Date Specimen was Collected: 07/17/24
Time Specimen was Collected: 19:26
07/17/24 20:23
Complete Blood Count/With Diff Urgent
Comprehensive Metabolic Panel Urgent
Lipase Urgent
07/17/24 21:26
CT Abd/pelvis W Iv Cont Urgent
Comment:
Reason For Exam: left sided abd pain
07/17/24 21:27
0.9% Sodium Chloride 1000 ml [Nss] 1,000 ml IV BOLUS
Abnormal Lab Results
07/17/24
20:23
RBC 3.50 L 10^6/uL
(4.20-5.40)
Hgb 11.1 L g/dL
(12.0-16.0)
Hct 32.2 L %
(37.0-47.0)
MCH 31.7 H pg
(27.0-31.0)
Sodium 130 L mmol/L
(135-145)
BUN 28 H mg/dl
(7-17)
Glucose 103 H mg/dl
(70-99)
07/17/24 20:23
07/17/24 20:23
Vital Signs
Initial and Last Documented VS:
Initial Vital Signs
Temp Pulse Resp BP Pulse Ox
97.7 F 68 20 178/104 97
07/17/24 19:23 07/17/24 19:23 07/17/24 19:23 07/17/24 19:23 05/03/25 19:23
Last Documented Vital Signs
Temp Pulse Resp BP Pulse Ox
97.7 F 55 17 151/64 95
07/17/24 19:23 07/17/24 23:13 07/17/24 23:13 07/17/24 23:13 07/17/24 23:13
MDM/Problems Addressed
Differential Diagnosis Includes:
Not limited to muscle sprain strain, muscular pain, diverticulitis, less likely colitis
MDM/Problems Addressed:
Patient as documented is 80 female who had left-sided back pain prior to arrival walking down the steps felt left-sided abdominal pain. She felt this was similar to her diverticulitis. On exam she is mildly tender on arrival. No acute findings on
CAT scan. Patient denies any fevers and is afebrile with a normal white count sodium mildly low 130 BUN elevated 28 patient was given fluid urinalysis negative.
CAT scan detail shows mild bladder wall thickening possibly suggestive of cystitis however patient with no UTI symptoms and clean urine. Patient initially felt this was muscular in her back and felt the pain in her left side of her abdomen while
walking down the steps. On reexam at rest patient denies any abdominal pain. It is possible that this is muscular. pt is nontoxic , stable for d/c home w/ pcp follow up. Discussed with patient importance of outpatient follow-up with PCP minimally
for reevaluation of symptoms but also for recheck of sodium
Chronic conditions affecting care:
diverticulosis, back pain
*Radiology
Radiology exam reviewed: radiology read reviewed (Mild bladder wall thickening with surrounding fat stranding suggestive of cystitis no hydro nephrolithiasis or Hans diverticulosis no bowel obstruction or focal dilation no free air)
*Pulse Oximetry
Patient hypoxic: no
*Critical Care Note
Total Time (30-74mins, 75-104mins- exclusive of procedures): Not Applicable
ED Attending Note
-
Portions of this chart may have been created with voice recognition software.� Occasional wrong word or��sound alike� substitutions may have occurred due to the inherent limitations of voice recognition software.
Discharge Plan
Departure
Patient Disposition: Home (Routine Discharge)
Date of Disposition: 07/18/24
Time of Disposition: 00:34
Patient with high blood pressure during this ER visit?: Yes
Covid-19: Not Applicable
Discharge Problem:
Abdominal pain
Instructions: Abdominal Pain, BLOOD PRESSURE
Prescriptions:
No Action
levothyroxine 75 MCG tablet
75 mcg PO DAILY AT 0700
lorazepam 0.5 MG tablet
0.5 mg PO DAILY
zolpidem 5 MG tablet
5 mg PO HSPRN PRN (Reason: sleep)
lidocaine 1 PATCH adhesive patch,medicated
1 patch topical DAILYPRN PRN (Reason: thoracic back)
rosuvastatin 5 MG tablet
5 mg PO QPM
PreserVision AREDS-2 1 EACH capsule
1 ea PO BID
docusate sodium 100 MG capsule
100 mg PO BID Qty: 60 0RF
psyllium Packet
1 packet PO DAILY
ascorbic acid (vitamin C) [Vitamin C] 500 mg Tablet
500 mg PO DAILY
Visbiome 112.5 billion cell Capsule
1 cap PO DAILY
cholecalciferol (vitamin D3) [Vitamin D3] 50 mcg (2,000 unit) Tablet
50 mcg PO DAILY
polyethylene glycol 3350 [HealthyLax] 17 gram Powder In Packet
17 g PO DAILY Qty: 30 0RF
lisinopril 40 mg tablet
40 mg PO DAILY Qty: 30 0RF
Referrals:
Elizabeth Acosta MD [Family Provider] -
Activity Restrictions/Additional Instructions:
Follow up with your PCP in the next several days for reevaluation of your symptoms. You may alternate between ibuprofen and Tylenol for discomfort.
As discussed your CAT scan was negative for any acute findings
Your sodium was mildly low, please have this re-checked by your pcp in the next one week.
Return if any worsening of symptoms.
Interventions
Interventions:
*Risk Screen - Suicide Last Done: 07/17/24 19:23
*General Assessment Last Done: 07/17/24 19:23
*Neglect/Abuse Screening Last Done: 07/17/24 19:23
*ED- Fall Risk Assessment Last Done: 07/17/24 23:13
*ED COVID-19 Vaccine History Last Done: 07/17/24 23:13
MP-[id number]-[id number] Assessment Last Done: 07/17/24 20:31
Discharge Date and Time
Print Language: CITIZEN [place]
[2024-07-17 20:28] VITALS: BMI 29.4
[2024-07-17 20:33] LABS: % Basophils 0.3 % (0-2); % Eosinophils 1.9 % (0-6); % Immature Granulocytes 0.5 % (0-0.5); % Lymphocytes 26.8 % (20.5-51.1); % Monocytes 6.1 % (1.7-9.3); % Neutrophils 64.4 % (42.2-75.2); Absolute Eosinophils 0.1 10^3/uL (0-0.7); Absolute Monocytes 0.5 10^3/uL (0.1-0.6); Absolute Neutrophils 4.7 10^3/uL (1.4-6.5); Hematocrit 32.2 % (37.0-47.0); Hemoglobin 11.1 g/dL (12.0-16.0); Mean Corp Hgb Conc. 34.5 g/dL (33.0-37.0); Mean Corpuscular Hgb 31.7 pg (27.0-31.0); Mean Platelet Volume 9.5 fL (7.4-10.4); Nucleated Red Blood Cells % 0 %; Platelet Count 189 10^3/uL (130-400); Red Cell Dist. Width 13.5 % (11.5-14.5); White Blood Cell Count 7.4 10^3/uL (4.8-10.8)
[2024-07-17 20:52] LABS: ALT (SGPT) 16 U/L (0-35); AST (SGOT) 24 U/L (14-36); Albumin 3.8 g/dl (3.5-5.0); Alkaline Phosphatase 50 U/L (38-126); Blood Urea Nitrogen 28 mg/dl (7-17); Calcium 9.8 mg/dl (8.4-10.2); Carbon Dioxide 23 mmol/L (22-30); Chloride 100 mmol/L (98-107); Estimated Creatinine Clearance 57 ml/min; Glucose 103 mg/dl (70-99); Lipase 146 U/L (23-300); Potassium 4.5 mmol/L (3.5-5.1); Sodium 130 mmol/L (135-145); Total Bilirubin 0.4 mg/dl (0.2-1.3); Total Protein 6.4 g/dl (6.3-8.2); eGFR > 60.00
[2024-07-17] MEDS: NSS 1000 IV (21:58)
[2024-07-17 23:13] VITALS: BP 151/64
== END 2024-07-18 00:57 | disposition home or self-care (01) ==
LOC: EMR 19:20
PROVIDERS: EMERGENCY PHYSICIAN Emergency Medicine; FAMILY PHYSICIAN Internal Medicine
DX: R10.9 Unspecified abdominal pain (principal); M54.50 Low back pain, unspecified; I10 Essential (primary) hypertension; E78.00 Pure hypercholesterolemia, unspecified; E03.9 Hypothyroidism, unspecified; F41.9 Anxiety disorder, unspecified; Z82.49 Family history of ischemic heart disease and other diseases of the circulatory system; Z87.891 Personal history of nicotine dependence
CPT/HCPCS: 99284; 74177; 80053; 81003; 83690; 85025; Q9967

== ENCOUNTER → 2024-09-21 14:35 | Outpatient (REF) | payer OTHER, SELFPAY | LOC: PAVMRI 14:35 | PROVIDERS: ATTENDING PHYSICIAN Pain Medicine Interventional Pain Medicine; FAMILY PHYSICIAN Internal Medicine | DX: M54.16 Radiculopathy, lumbar region (principal) | CPT/HCPCS: 72148 ==

== ENCOUNTER → 2024-12-31 13:38 | Outpatient (REF) | payer OTHER, SELFPAY | LOC: WDC 13:38 | PROVIDERS: ATTENDING PHYSICIAN Internal Medicine | DX: Z12.31 Encounter for screening mammogram for malignant neoplasm of breast (principal) | CPT/HCPCS: 77063; 77067 ==

== ENCOUNTER → 2025-02-22 10:37 | Outpatient (REF) | payer OTHER, SELFPAY | LOC: RAD 10:37 | PROVIDERS: ATTENDING PHYSICIAN Podiatrist Foot & Ankle Surgery | DX: S90.31XA Contusion of right foot, initial encounter (principal) | CPT/HCPCS: 73630 ==